=== PATIENT | female | born 1940 | race Caucasian/White ===

== ENCOUNTER 2024-10-04 09:43 | Emergency (ER) | payer MEDICARE, BC, SELFPAY ==
[2024-10-04 09:47] VITALS: BP 118/68; PULSE 69; RESP 20; TEMP 36.4; O2SAT 97
--- NOTE | 2024-10-04 10:09 | PD.EDADULT ---
ED General RME/HPI General Chief complaint: Nausea/Vomiting/Diarrhea Stated complaint: DIARRHEA TODAY WITH ABD CRAMPS Time Seen by Provider: 10/04/24 10:05 Arrival date/time: 10/04/24 09:43 Related Data Home Medications ?Medication ?Instructions ?Recorded ?Confirmed benazepril 5 mg tablet 5 mg PO QDAY 04/21/18 02/10/22 levothyroxine 100 mcg tablet 100 mcg PO DAILY 04/21/18 02/10/22 lovastatin 40 mg tablet 40 mg PO DAILY 04/21/18 02/10/22 glimepiride 1 mg tablet 1 mg PO QDAY 02/10/22 02/10/22 metformin 500 mg tablet,extended 500 mg PO QDAY 02/10/22 02/10/22 release 24 hr timolol maleate 0.5 % eye drops 1 drp ophthalmic (eye) BID 02/10/22 02/10/22 Previous Rx's ?Medication ?Instructions ?Recorded ciprofloxacin HCl 500 mg tablet 500 mg PO BID 10 days #20 tabs 10/04/24 metronidazole 500 mg tablet 500 mg PO Q8H 10 days #30 tabs 10/04/24 Allergies Allergy/AdvReac Type Severity Reaction Status Date / Time nitrofurantoin Allergy Mild Itching Verified 08/29/18 17:00 sulfamethoxazole Allergy Mild Itching Verified 08/29/18 17:00 trimethoprim Allergy Mild Itching Verified 08/29/18 17:00 Penicillins Allergy Unknown Itching Verified 08/29/18 17:00 FOAM TAPE Allergy Mild skin Uncoded 08/29/18 17:00 peels off PAPER TAPE Allergy Unknown skin Uncoded 08/29/18 17:00 peels off PLASTIC TAPE Allergy Unknown skin Uncoded 08/29/18 17:00 peels off Review of Systems Review of Systems Systems Reviewed: All systems reviewed, normal except as documented ED Exam Narrative Physical exam: Physical Exam GENERAL: NAD, AAOx3 HEENT: Moist mucosa. Eyes open, symmetrical, & clear CARDIO: Heart RRR, no obvious murmurs PULM: No noted coughing/dyspnea CTA B/L, no R/W/R GI: Abdomen soft, nondistended, mild LLQ pain on palpation. hyperactive bowel sounds SKIN/MSK/EXT: No wounds/rashes/edema/amputations, no pain on palpation. Pedal pulses present B/L NEURO: AAOx3, no focal neuro deficits, able to move all 4 extremities Course Course Course Narrative: see MDM Quality Measures none Orders Category Date Time Status Cogeneration Technician Q4H START 00 Care 10/04/24 10:13 Completed Continuous Pulse Oximetry NOW Care 10/04/24 10:13 Completed EKG (ED ONLY) *Do not use* NOW Care 10/04/24 10:14 Completed Insert IV STAT Care 10/04/24 10:14 Completed NPO STAT Care 10/04/24 10:[address] abdomen pelvis wo con Stat Exams 10/04/24 10:16 Completed EKG (ED Only) Stat Exams 10/04/24 10:14 Draft CBC Stat Lab 10/04/24 10:27 Completed CMP [Comprehensive Metabolic Panel] Stat Lab 10/04/24 10:27 Completed Lactic Acid [Lactate (Lactic Acid)] Stat Lab 10/04/24 10:27 Completed Lactic Acid [Lactate (Lactic Acid)] Stat Lab 10/04/24 12:57 Results Lipase Stat Lab 10/04/24 10:27 Completed Magnesium Stat Lab 10/04/24 10:27 Completed Troponin I Stat Lab 10/04/24 10:27 Completed Urinalysis Stat Lab 10/04/24 12:19 Completed Ciprofloxacin HCl [Ciprofloxacin] Med 10/04/24 12:24 Discontinued 500 mg PO X1 ONE Ondansetron Inj [Zofran Inj] Med 10/04/24 10:14 Discontinued 4 mg IVP Q1H PRN Pantoprazole Inj [Protonix Inj] Med 10/04/24 10:14 Discontinued 40 mg IVP X1 ONE Sodium Chloride 0.9% 1000 ml [Ns] 1,000 ml Med 10/04/24 10:14 Discontinued IV 100 mls/hr Sodium Chloride 0.9% 1000 ml [Ns] 1,000 ml Med 10/04/24 10:14 Discontinued IV 999 mls/hr Sodium Chloride 0.9% 1000 ml [Ns] 1,000 ml Med 10/04/24 12:25 Discontinued IV 999 mls/hr metroNIDAZOLE [Flagyl] Med 10/04/24 12:24 Discontinued 500 mg PO X1 ONE Vital Signs Vital signs: Vital Signs Temperature 97.6 F 10/04/24 09:47 Pulse Rate 69 10/04/24 09:47 Respiratory Rate 20 10/04/24 09:47 Blood Pressure 118/68 10/04/24 09:47 Pulse Oximetry (%) 97 10/04/24 09:47 Oxygen Delivery Method Room Air 10/04/24 09:47 Discharge Plan Plan Patient Disposition: HOME (Self Care) Prescriptions/Referrals Prescriptions/Med Rec: New ciprofloxacin HCl 500 mg tablet 500 mg PO BID 10 Days Qty: 20 0RF metronidazole 500 mg tablet 500 mg PO Q8H 10 Days Qty: 30 0RF No Action benazepril 5 mg Tablet 5 mg PO QDAY lovastatin 40 mg Tablet 40 mg PO DAILY levothyroxine 100 mcg Tablet 100 mcg PO DAILY glimepiride 1 mg Tablet 1 mg PO QDAY timolol maleate 0.5 % Drops 1 drp OPHTHALMIC (EYE) BID metformin 500 mg Tablet Extended Release 24 Hr 500 mg PO QDAY Referrals: Omkar Lim MD [Primary Care Provider] - In 1 week Problem List Clinical Impression: Diverticulitis Patient/Caregiver Discharge Instructions Additional Instructions: Follow up with primary care physician within 1 week of discharge You have Diverticulitis and have been prescribed antibiotics for 10 days please take these medications are prescribed and complete the whole course Remember to stay hydrated since you are having diarrhea episodes Should any symptoms recur or worsen patient is instructed to return to the ED. Print Language: Greenlandic Stand Alone Forms: [employer] Info., Patient Portal Info Letter MDM Narrative MDM hospital course: 84 y/o F with PMHx of Atrial fibrillation, Diabetes, hypertension, hypothyroidism, renal cell carcinoma s/p left nephrectomy, stage IV malignant brain tumor with lung mets was on keytruda last session on july due to no response to therapy, allergies to Penicillin, TMP-SMX, nitrofurantoin who was brought to the ED from home due to diarrhea. Patient states symptoms started this am where she reports having >10 episodes of non-bloody diarrhea with associated diaphoresis. She denies fever, shortness of breath, palpitations, chest pain, vomiting, swelling of extremities, PND, orthopnea 1021: Labs ordered, 1L IVFs ordered, imaging studies 1103: Lactic acid noted to be 5.2, patient already on IVFs, CBC is unremarkable, 1148: CT abdomen pelvis shows acute diverticulitis, additional IVFs ordered 1222: Family and patient wishes to go home and not stay in the hospital for IV Abx, will order first dose of Ciprofloxacin and flagyl in the ER and prescribe Abx therapy to her pharmacy Patient is counseled extensively on the complications of diverticulitis and given strict return precautions. Patient instructed if symptoms recur or worsen patient is instructed to return to the ED. Clinical Information Provided by patient Medical Records Reviewed [facility] Chronic Illness/Social Conditions which may negatively complicate care or outcome(s)-explain: Cancer Medication Administration(s) Medication Administration History Discontinued Medications Ciprofloxacin (Ciprofloxacin Hcl 250 Mg Tablet) 500 mg PO X1 ONE Stop: 10/04/24 12:25 Last Admin: 10/04/24 12:37 Dose: 500 mg Documented By: JUAN CARLOS Sodium Chloride (Ns) 1,000 mls @ 100 mls/hr IV .Q10H ONE Stop: 10/04/24 20:13 Last Admin: 10/04/24 11:21 Dose: Not Given Documented By: JUAN CARLOS Non-Admin Reason: Cancelled by Provider Sodium Chloride (Ns) 1,000 mls @ 999 mls/hr IV .Q1H1M ONE Stop: 10/04/24 11:14 Last Infusion: 10/04/24 12:17 Dose: Infused Documented By: Admin: 10/04/24 11:23 Dose: 999 mls/hr Documented By: JUAN CARLOS Sodium Chloride (Ns) 1,000 mls @ 999 mls/hr IV .Q1H1M ONE Stop: 10/04/24 13:25 Last Infusion: 10/04/24 14:32 Dose: Infused Documented By: Admin: 10/04/24 12:39 Dose: 999 mls/hr Documented By: JUAN CARLOS Metronidazole (Metronidazole 250 Mg Tablet) 500 mg PO X1 ONE Stop: 10/04/24 12:25 Last Admin: 10/04/24 12:36 Dose: 500 mg Documented By: JUAN CARLOS Ondansetron HCl (Ondansetron Inj 2 Mg/Ml Inj 2 Ml) 4 mg IVP Q1H PRN PRN Reason: PERSISTENT NAUSEA OR VOMITING Last Admin: 10/04/24 11:26 Dose: 4 mg Documented By: UJAN CARLOS Pantoprazole Sodium (Pantoprazole Inj 40 Mg Vial) 40 mg IVP X1 ONE Stop: 10/04/24 10:15 Last Admin: 10/04/24 11:31 Dose: 40 mg Documented By: JUAN CARLOS
--- NOTE | 2024-10-04 10:14 | EKG_ITS ---
[facility] Test Date: 2024-10-04 Pat Name: ISMAEL DEWITT Department: Room: - Gender: Female Audio Visual Manager: : 1940 Requested By: Jerardo Elizalde Order Number: [id number] Reading MD: Jerardo Elizalde Measurements Intervals [place] Rate: 74 P: 56 MA: 166 QRS: -9 QRSD: 92 T: -18 QT: 378 QTc: 421 Interpretive Statements SINUS RHYTHM WITH SINUS ARRHYTHMIA LOW QRS VOLTAGE IN PRECORDIAL LEADS [QRS DEFLECTION < 1.0 mV IN CHEST LEADS] NONSPECIFIC ST & T-WAVE ABNORMALITY Compared to ECG 02/10/2022 10:15:16 T-wave abnormality now present Atrial fibrillation no longer present Myocardial infarct finding no longer present /store/S0/[id number]/[id number].pdf
[2024-10-04 10:15] VITALS: BP 122/66; PULSE 74; PULSE 77; RESP 17; TEMP 36.5; O2SAT 97; O2SAT 99
--- NOTE | 2024-10-04 10:15 | PC.NURSE ---
DIARRHEA AND ABD CRAMPING TODAY
--- NOTE | 2024-10-04 10:16 | XR_ITS ---
Examination: CT abdomen and pelvis without contrast. Coronal 3-D reconstructions. Sagittal 2-D reconstructions. Date and time of exam:October 04, 2024 1041 hours Comparison September 15, 2016 INDICATIONS: History renal cell carcinoma post left nephrectomy, abdominal pain severe diarrhea today CTDI: vol (mGy): 10.2 DLP: (mGycm): 612 Technique: Axial images of the abdomen have been obtained, 3 mm slice thickness Intravenous contrast material has not been administered. Low dose protocols were performed. One or more of the following dose reduction techniques were used; automated exposure control, adjustment of the mA and/or KV according to patient size, use of iterative reconstruction technique. Findings: Pulmonary nodular metastatic disease, multiple bilateral pulmonary nodules which have progressed compared with CT chest September 06, 2019, the largest nodule in the lingular segment left upper lobe measuring 33 mm Liver is irregular in contour, no focal liver lesions Spleen is not enlarged Gallbladder is not visualized No extrahepatic biliary tract dilatation No pancreatic mass Right renal arterial calcifications No solid right renal mass No tumor mass in the left renal fossa No abdominal or pelvic lymphadenopathy No bowel obstruction No pericecal inflammatory change. Colonic diverticulosis with fluid adjacent to the diverticula in the sigmoid colon No peridiverticular abscess Bladder intact Severe osteopenia with advanced disc narrowing L2-L3, L4-L5 IMPRESSION: Progression of pulmonary nodular metastatic disease compared with September 06, 2019 Mild acute sigmoid diverticulitis
[2024-10-04 10:53] VITALS: BMI 28.8
[2024-10-04 10:53] LABS: Basophils # (Auto) 0.1 Thou/mm3 (0.0-0.2); Basophils % (Auto) 1 % (0-2.5); Eosinophils # (Auto) 0.0 Thou/mm3 (0.0-0.5); Eosinophils % (Auto) 0 % (0-10); Hematocrit 38.9 % (36.0-46.0); Hemoglobin 13.0 g/dL (12.0-16.0); Immature Granulocytes Auto 0.05 Thou/mm3 (0.00-0.00); Lymphocytes # (Auto) 2.4 Thou/mm3 (1.0-4.8); Lymphocytes % (Auto) 27 % (10-50); Mean Corpuscular HGB Conc 33.4 g/dl (31.0-37.0); Mean Corpuscular Hemoglobin 32.6 pg (25.0-35.0); Mean Corpuscular Volume 98 fL (80-100); Monocytes # (Auto) 0.6 Thou/mm3 (0.0-0.8); Monocytes % (Auto) 6 % (0-12); Neutrophils # (Auto) 5.7 Thou/mm3 (1.8-7.7); Neutrophils % (Auto) 65 % (37-80); Nucleated Red Blood Cell # 0.02 Thou/mm3 (0.00-0.00); Nucleated Red Blood Cell % 0 /100 WBC (0); Platelet Count 206 Thou/mm3 (140-440); RDW Standard Deviation 53.1 fL (36.4-46.3); Red Blood Count 3.99 Miln/mm3 (4.00-5.20); White Blood Count 8.8 Thou/mm3 (3.6-11.0)
[2024-10-04 11:00] VITALS: BP 106/73; PULSE 76; RESP 19; O2SAT 100
[2024-10-04 11:01] LABS: Lactate (Lactic Acid) 5.2 mMol/L (0.4-2.0)
[2024-10-04] MEDS: SODIUM CHLORIDE 0.9% 1000 ML 1,000 ML 999 ML IV ×2 (11:23→12:39)
[2024-10-04] MEDS: ONDANSETRON INJ 2 MG/ML INJ 2 ML 4 MG IVP (11:26)
[2024-10-04 12:00] VITALS: BP 118/56; PULSE 77; RESP 24; TEMP 36.5; O2SAT 97
[2024-10-04 12:18] LABS: Alanine Aminotransferase 35 U/L (10-49); Albumin, Serum 4.5 gm/dL (3.4-4.8); Albumin/Globulin Ratio 2.0 (1.2-2.2); Alkaline Phosphatase 51 U/L (46-116); Anion Gap 15 (7-16); Aspartate Amino Transferase 41 U/L (0-34); BUN/Creatinine Ratio 16 Ratio (12-20); Bilirubin,Total 1.0 mg/dL (0.3-1.2); Blood Urea Nitrogen 21 mg/dL (9-23); Calcium 9.9 mg/dL (8.3-10.6); Calcium (Corrected) 9.9 mg/dL (8.5-10.1); Carbon Dioxide 21.3 mMol/L (20.0-31.0); Chloride 105 mMol/L (98-107); Creatinine (Component) 1.3 mg/dL (0.6-1.3); Estimated Creatinine Clearance 35.8 mL/min (>60); Globulin 2.3 gm/dL (2.3-3.5); Glucose 218 mg/dL (74-106); Lipase 33 U/L (12-53); Magnesium 1.4 mg/dL (1.6-2.6); Osmolality,Calculated 291 (275-295); Potassium 4.2 mMol/L (3.4-5.1); Sodium 141 mMol/L (136-145); Total Protein 6.8 gm/dL (5.7-8.2); Troponin I 0.024 ng/mL (0.0-0.045); eGFR 41 See Note
[2024-10-04 12:31] LABS: Collection Type, Urine Clean Catch
[2024-10-04] MEDS: CIPROFLOXACIN HCL 250 MG TABLET 500 MG PO (12:37)
[2024-10-04 13:04] LABS: Lactate (Lactic Acid) 4.7 mMol/L (0.4-2.0)
[2024-10-04 13:23] LABS: Bacteria,Urine 1+; Bilirubin,Urine Negative (Negative); Blood,Urine Negative (Negative); Clarity,Urine Turbid (Clear/Hazy); Color,Urine Lt-Yellow (Lt Yel-Yel); Glucose, Urine Negative (Negative); Ketones,Urine Negative (Negative); Leukocyte Esterase,Urine Positive (Negative); Nitrite,Urine Positive (Negative); PH,Urine 6.5 (5.0-7.0); Protein,Urine Negative (Neg - Trace); RBC,Urine 5 /hpf (0-3); Specific Gravity,Urine 1.010 (1.001-1.035); Squamous Epithelial Cell,Urine 1 /hpf (0-5); Urobilinogen,Urine Negative mg/dL (0.0-1.0); WBC,Urine 41 /hpf (0-5)
[2024-10-04 13:35] LABS: Reflex Lactate? Y
[2024-10-04 14:00] VITALS: BP 155/83; PULSE 72; RESP 16; TEMP 36.6; O2SAT 97
[2024-10-04 14:32] VITALS: BP 155/83; PULSE 76; RESP 18; O2SAT 99
[2024-10-04 16:00] LABS: Reflex Lactate? Y
== END 2024-10-04 14:34 | disposition home or self-care (01) ==
PROVIDERS: Student in an Organized Health Care Education/Training Program; Emergency Provider Family Medicine; PCP Family Medicine
DX: K57.32 Diverticulitis of large intestine without perforation or abscess without bleeding (principal); I49.8 Other specified cardiac arrhythmias; I10 Essential (primary) hypertension; I48.91 Unspecified atrial fibrillation
CPT/HCPCS: 36415; 74176; 80053; 81001; 83605; 83690; 83735; 84484; 85025; 87205; 93005; 96361; 96372; 96374; 96375; 99284; J2405; J2470; J7030; A9270

== ENCOUNTER → 2024-10-26 | Outpatient (CLI) | payer MEDICARE, BC, SELFPAY | END | disposition home or self-care (01) | LOC: SWHD 09:34 | PROVIDERS: PCP Internal Medicine; Referring Provider Internal Medicine; Visit Provider Student in an Organized Health Care Education/Training Program | DX: S51.002A Unspecified open wound of left elbow, initial encounter (principal); W19.XXXA Unspecified fall, initial encounter; R91.8 Other nonspecific abnormal finding of lung field; I10 Essential (primary) hypertension; K57.92 Diverticulitis of intestine, part unspecified, without perforation or abscess without bleeding; I48.91 Unspecified atrial fibrillation; Z98.890 Other specified postprocedural states; H40.9 Unspecified glaucoma | CPT/HCPCS: 17250; 99213; A9270; G0463 ==

== ENCOUNTER → 2024-11-02 | Outpatient (CLI) | payer MEDICARE, BC, SELFPAY | END | disposition home or self-care (01) | LOC: SWHD 14:01 | PROVIDERS: PCP Family Medicine; Referring Provider Family Medicine; Visit Provider Student in an Organized Health Care Education/Training Program | DX: S51.002A Unspecified open wound of left elbow, initial encounter (principal); W19.XXXA Unspecified fall, initial encounter; R91.8 Other nonspecific abnormal finding of lung field; I10 Essential (primary) hypertension; K57.92 Diverticulitis of intestine, part unspecified, without perforation or abscess without bleeding; I48.91 Unspecified atrial fibrillation; Z98.890 Other specified postprocedural states; H40.9 Unspecified glaucoma | CPT/HCPCS: 17250; A9270 ==

== ENCOUNTER 2024-11-14 00:45 | Inpatient (IN) | payer MEDICARE, BC, SELFPAY ==
[2024-11-14] VITALS (46 sets, daily range): BP systolic 98–130; BP diastolic 43–79; PULSE 67–107; RESP 12–96; TEMP 36.2–36.7; O2SAT 71–98; BMI 27.6; BMI 26.8
--- NOTE | 2024-11-14 00:57 | PD.EDFALL ---
ED Fall Injury RME/HPI General Chief Complaint: Fall Stated Complaint: BACK PAIN Time Seen by Provider: 11/14/24 01:22 Arrival date/time: 11/14/24 00:45 RME / HPI RME / HPI Narrative: See MDM for HPI documentation. Related Data Home Medications ?Medication ?Instructions ?Recorded ?Confirmed benazepril 5 mg tablet 5 mg PO QDAY 04/21/18 11/14/24 levothyroxine 100 mcg tablet 100 mcg PO DAILY 04/21/18 11/14/24 lovastatin 40 mg tablet 40 mg PO DAILY 04/21/18 11/14/24 metformin 500 mg tablet,extended 500 mg PO QDAY 02/10/22 11/14/24 release 24 hr timolol maleate 0.5 % eye drops 1 drp ophthalmic (eye) BID 02/10/22 11/14/24 [id number]-jiwoegurhrexz-iacycfvo 1 tab PO PRN 11/14/24 11/14/24 50 mg-325 mg-40 mg tablet dapsone 100 mg tablet 100 mg PO QDAY 11/14/24 11/14/24 diclofenac sodium 1 % topical gel 4 g topical QID 11/14/24 11/14/24 loperamide 2 mg capsule 2 mg PO QID 11/14/24 11/14/24 meclizine 12.5 mg tablet 12.5 mg PO TID 11/14/24 11/14/24 metoprolol succinate 25 mg 25 mg PO Q12H 11/14/24 11/14/24 tablet,extended release 24 hr prednisone 10 mg tablet 10 mg PO QDAY 11/14/24 11/14/24 Previous Rx's ?Medication ?Instructions ?Recorded doxycycline monohydrate 100 mg 100 mg PO BID #10 caps 11/16/24 capsule dronabinol 2.5 mg capsule 2.5 mg PO QDAY #30 caps 11/16/24 nystatin 100,000 unit/gram topical 1 applic top BID 30 days #30 grams 11/16/24 cream Allergies Allergy/AdvReac Type Severity Reaction Status Date / Time adhesive tape Allergy Mild Redness of Unverified 11/16/24 09:23 Skin ceftriaxone Allergy Mild rash Verified 11/16/24 09:58 nitrofurantoin Allergy Mild Itching Verified 11/16/24 09:23 sulfamethoxazole Allergy Mild Itching Verified 11/16/24 09:23 trimethoprim Allergy Mild Itching Verified 08/29/18 17:00 Penicillins Allergy Unknown Itching Verified 11/16/24 09:23 Review of Systems Review of Systems Systems Reviewed: All systems reviewed, normal except as documented Past Medical History Past Medical History CARDIAC: Positive Cardiac Disorders, Hypercholesterolemia and Hypertension; Negative Congestive Heart Failure RESPIRATORY: Negative Chronic Obstructive Pulmonary Disease (COPD) GENITOURINARY: Negative Renal Disease ENDOCRINE: Positive Diabetes Mellitus Type 2 and Hypothyroidism; Negative Diabetes Mellitus Type 1 OTHER HISTORY: Positive Cancer Social History SMOKING STATUS: Never smoker ED Exam Narrative Physical exam: See MDM for physical exam documentation. Course Quality Measures none Orders Category Date Time Status Bedside COVID-19 Antigen Test NOW Care 11/14/24 01:18 Active Bedside Influenza A&B Antigen Test NOW Care 11/14/24 01:18 Completed COVID-19 Screening Questionnaire NOW Care 11/14/24 05:37 Active Decision to Admit X1 Care 11/14/24 05:37 Completed EKG (ED ONLY) *Do not use* NOW Care 11/14/24 01:19 Completed Saline [Insert IV] NOW Care 11/14/24 01:18 Completed Straight [In and Out Catheter] X1 Care 11/14/24 01:[address] cervical spine wo con Stat Exams 11/14/24 01:[address] chest abdomen pelvis wo Stat Exams 11/14/24 01:[address] head/brain wo con Stat Exams 11/14/24 01:20 Completed EKG (ED Only) Stat Exams 11/14/24 01:19 Draft XR chest 1V portable Stat Exams 11/14/24 01:19 Completed XR femur BI min 2V Stat Exams 11/14/24 01:19 Completed XR forearm LT 2V Stat Exams 11/14/24 01:20 Completed BNP [B-Type Natriuretic Peptide] Stat Lab 11/14/24 01:31 Completed Beta Hydroxybutyrate Stat Lab 11/14/24 01:31 Completed Bilirubin,Direct Stat Lab 11/14/24 01:31 Completed Blood Culture (Lab) Stat Lab 11/14/24 01:34 Results CBC Stat Lab 11/14/24 01:31 Completed CK [Creatine Kinase] Stat Lab 11/14/24 01:31 Completed CMP [Comprehensive Metabolic Panel] Stat Lab 11/14/24 01:31 Completed CRP [C-Reactive Protein] Stat Lab 11/14/24 01:31 Completed ESR [Sed Rate (ESR)] Stat Lab 11/14/24 01:31 Completed Free T4 (Free Thyroxine) Stat Lab 11/14/24 01:31 Completed Lactate (Lactic Acid) Stat Lab 11/14/24 01:31 Completed Lactic Acid, 3 HR Stat Lab 11/14/24 05:21 Completed Lipase Stat Lab 11/14/24 01:31 Completed Magnesium Stat Lab 11/14/24 01:31 Completed Procalcitonin Stat Lab 11/14/24 01:31 Completed TSH [Thyroid Stimulating Hormone] Stat Lab 11/14/24 01:31 Completed Troponin I Stat Lab 11/14/24 01:31 Completed UA, C/S IF [Urinalysis, C/S if Indicated] Stat Lab 11/14/24 03:17 Completed Urine Culture Stat Lab 11/14/24 03:17 Completed VBG [Venous Blood Gas] Stat Lab 11/14/24 05:21 Completed Magnesium Sulfate 4 GM Ivpb [Magnesium Sulfate Ivpb] Med 11/14/24 02:47 Discontinued 4 gm in 50 ml IV X1 Morphine Inj Med 11/14/24 01:19 Discontinued 2 mg IVP X1 ONE Ondansetron Inj [Zofran Inj] Med 11/14/24 01:19 Discontinued 4 mg IVP X1 ONE Sodium Chloride 0.9% 1000 ml [Ns] 1,000 ml Med 11/14/24 01:19 Discontinued IV 999 mls/hr Sodium Chloride 0.9% 1000 ml [Ns] 1,000 ml Med 11/14/24 04:54 Discontinued IV 999 mls/hr cefTRIAXone/D5w 1gm IV premix [Rocephin/D5w 1gm IV Med 11/14/24 02:46 Discontinued premix] 1 gm in 50 ml IV X1 Vital Signs Vital signs: Vital Signs Temperature 98.0 F 11/14/24 01:15 Pulse Rate 107 H 11/14/24 01:15 Respiratory Rate 18 11/14/24 01:15 Blood Pressure 113/71 11/14/24 01:15 Pulse Oximetry (%) 97 11/14/24 01:15 Oxygen Delivery Method Room Air 11/14/24 01:15 Fall MDM Narrative MDM Narrative:: This section includes all my notes and documentations, including HPI, PE, and ED course. Mark Colvin MD HPI: 84yo female BIBA from home here for a fall. Patient got up to use the restroom at 9pm (several hours ago) and tripped and fell. She was unable to get up. Her son came home at 12am and found the patient on the floor. No loss of consciousness. Patient has back pain. She reports several days of worsening fatigue and malaise. No other complaints reported. ROS: All negative except as documented in HPI. Physical Exam: General: Alert and oriented. Appearance of malaise noted. Eyes: Conjunctivae and lids clear. EOMI. PERRL. ENT: No nasal congestion. Pharynx normal. Tympanic membrane normal bilaterally. Neck: Supple. No carotid bruit. No JVD. Heart: RRR. Lungs: No respiratory distress. Good air movement. No rhonchi, wheezing, rales. Chest: Equal tenderness. Abdomen: Soft with diffuse global tenderness. Normal bowel sounds. No distension. No rebound or guarding. Back: No spinal tenderness. Legs: No clubbing, cyanosis, edema. Skin: Warm and dry. Neuro: Alert and oriented X 3. Cranial Nerves II-XII grossly intact. No peripheral motor deficits. Musculoskeletal: Tenderness to the bilateral hips and left forearm. All other major joints and bones are not tender with no limited ROM. I reviewed EMS notes. I reviewed all diagnostic test results. My interpretation of the EKG is aFib with nonspecific ST-T changes. My interpretation of the chest x-ray is NAD. My interpretation of the bilateral femur x-ray is NAD. My interpretation of the left forearm x-ray is NAD. My review of the CT head report is NAD. My review of the CT cervical spine report is NAD. My review of the CT chest abdomen pelvis report is NAD. Blood tests remarkable for Na 131, Creatinine 1.5, Glucose 304, Lactic Acid 3.7, Magnesium 1.1, CRP 1.2. UA remarkable for positive nitrites, positive leukocyte esterase, 4 RBCs, 53 WBCs, and 4+ bacteria. COVID/Influenza negative. At this point, diagnoses include: Sepsis, General weakness, TAMMIE (acute kidney injury), Hyperglycemia, Hypomagnesemia, UTI (urinary tract infection) Treatment here included Morphine, Zofran, Rocephin, IV fluid. I discussed the case with our hospitalist. About the presentation and exam and diagnostics and treatments here. And need of further care in the hospital. Will accept the patient. Mark Colvin MD Patient data External records reviewed:: [facility] previous records (Per chart review, patient was seen here on 10/04/24 for diverticulitis.) and EMS form Clinical information provided by:: patient Social determinants that could affect healthcare access:: none Patient has the following chronic illnesses:: DM, HTN, HLD How is presenting disease/condition affected by chronic disease/condition?: uneffected by Evaluation data The following diagnostics were reviewed and interpreted by me:: lab results, radiology exam(s) and EKG tracing(s) (My interpretation of the EKG is: Atrial fibrillation (98 bpm) with nonspecific ST-T changes. Mark Colvin MD) Lab and/or radiology exams considered but not ordered:: none Interpretation Summary: I reviewed all diagnostic test results. My interpretation of the EKG is aFib with nonspecific ST-T changes. My interpretation of the chest x-ray is NAD. My interpretation of the bilateral femur x-ray is NAD. My interpretation of the left forearm x-ray is NAD. My review of the CT head report is NAD. My review of the CT cervical spine report is NAD. My review of the CT chest abdomen pelvis report is NAD. Blood tests remarkable for Na 131, Creatinine 1.5, Glucose 304, Lactic Acid 3.7, Magnesium 1.1, CRP 1.2. UA remarkable for positive nitrites, positive leukocyte esterase, 4 RBCs, 53 WBCs, and 4+ bacteria. COVID/Influenza negative. Medications / Prescriptions Medications or Prescriptions considered but not ordered:: none Medication administrations:: Medication Administration History Acetaminophen (Acetaminophen 325 Mg Tablet) 650 mg PO Q6H PRN PRN Reason: Fever >100.4 Stop: 12/14/24 05:43 Acetaminophen (Acetaminophen 325 Mg Tablet) 650 mg PO Q6H PRN PRN Reason: PAIN SCALE 1-3 (mild Stop: 12/14/24 05:43 Last Admin: 11/15/24 21:17 Dose: 650 mg Documented By: [email or web address] Hydrocodone Bitart/Acetaminophen (Hydrocodone/Apap 5/325 Tablet) 1 tab PO Q4HR PRN PRN Reason: PAIN SCALE 4-6 (Moderate Stop: 11/19/24 05:43 Atorvastatin Calcium (Atorvastatin Calcium 10 Mg Tablet) 10 mg PO 2100 JENNIFER; Protocol Stop: 12/15/24 20:59 Last Admin: 11/15/24 20:49 Dose: 10 mg Documented By: DOM Dextrose (Dextrose 50%-Water Inj 50 Ml Syringe) 25 ml IV Q15MIN PRN PRN Reason: BG 50-70 responsive npo pt Stop: 12/14/24 05:43 Dextrose (Dextrose 50%-Water Inj 50 Ml Syringe) 50 ml IV Q15MIN PRN PRN Reason: BG <50 OR BG <70 & pt unresponsive Stop: 12/14/24 05:43 Doxycycline Hyclate (Doxycycline 100 Mg Tablet) 100 mg PO BID [facility] Stop: 11/23/24 08:59 Last Admin: 11/16/24 09:27 Dose: 100 mg Documented By: CLARY Glucagon (Glucagon Inj 1 Mg Vial) 1 mg IM Q15MIN PRN PRN Reason: BG <70, and no IV access Heparin Sodium (Porcine) (Heparin Sod Inj 5000 Unit/Ml Vial) 5,000 unit SC Q12HR [facility] Stop: 11/28/24 08:59 Last Admin: 11/16/24 09:26 Dose: 5,000 unit Documented By: CLARY Co-signed By: BIMAL Admin: 11/15/24 20:48 Dose: 5,000 unit Documented By: DOM Co-signed By: ILYA Admin: 11/15/24 08:32 Dose: 5,000 unit Documented By: MICHAEL Co-signed By: JESSICA Admin: 11/14/24 20:54 Dose: 5,000 unit Documented By: DOM Co-signed By: ILYA Admin: 11/14/24 08:49 Dose: 5,000 unit Documented By: MARV Co-signed By: JANETH Sodium Chloride (Ns) 1,000 mls @ 75 mls/hr IV .[id number] [facility] Stop: 12/14/24 10:21 Last Admin: 11/16/24 12:20 Dose: 75 mls/hr Documented By: Infusion: 11/16/24 10:08 Dose: Infused Documented By: Admin: 11/16/24 05:36 Dose: Not Given Documented By: ILYA Non-Admin Reason: Wrong Time Admin: 11/15/24 20:48 Dose: 75 mls/hr Documented By: Infusion: 11/15/24 15:11 Dose: Infused Documented By: Admin: 11/15/24 01:51 Dose: 75 mls/hr Documented By: Infusion: 11/15/24 00:02 Dose: Infused Documented By: Admin: 11/14/24 10:42 Dose: 75 mls/hr Documented By: MARV Insulin Human Lispro (Insulin Lispro (Admelog) 1 Unit/0.01 Ml Unit) 0 unit SC AC JENNIFER; Protocol Stop: 12/14/24 07:29 Last Admin: 11/16/24 17:03 Dose: 1 unit Documented By: CLARY Co-signed By: BIMAL Admin: 11/16/24 12:03 Dose: 2 unit Documented By: BIMAL Co-signed By: CLARY Admin: 11/16/24 09:25 Dose: 1 unit Documented By: CLARY Co-signed By: BIMAL Admin: 11/15/24 17:12 Dose: 2 unit Documented By: MICHAEL Co-signed By: JESSICA Admin: 11/15/24 11:39 Dose: 2 unit Documented By: MICHAEL Co-signed By: EMELINA Admin: 11/15/24 08:20 Dose: Not Given Documented By: MICHAEL Non-Admin Reason: Per Protocol Admin: 11/14/24 17:51 Dose: 4 unit Documented By: MICHAEL Co-signed By: [email or web address] Admin: 11/14/24 12:39 Dose: 3 unit Documented By: MARV Co-signed By: ANGEL Admin: 11/14/24 07:50 Dose: 1 unit Documented By: MARV Co-signed By: JANETH Lactulose (Lactulose Syrup 20 Gm/30 Ml Udc) 20 gm PO DAILY JENNIFER; Protocol Stop: 12/15/24 08:59 Last Admin: 11/16/24 09:26 Dose: 20 gm Documented By: Admin: 11/15/24 09:49 Dose: Not Given Documented By: MICHAEL Non-Admin Reason: Patient Refused Levothyroxine Sodium (Levothyroxine Sodium 100 Mcg Tablet) 100 mcg PO ACBR JENNIFER Stop: 12/15/24 08:59 Last Admin: 11/16/24 05:04 Dose: 100 mcg Documented By: Admin: 11/15/24 08:32 Dose: 100 mcg Documented By: MICHAEL Metoprolol Succinate (Metoprolol Succinate Xl 25 Mg Tabcr) 25 mg PO Q12H JENNIFER Stop: 12/15/24 09:14 Last Admin: 11/16/24 09:26 Dose: 25 mg Documented By: Admin: 11/15/24 20:49 Dose: 25 mg Documented By: Admin: 11/15/24 09:55 Dose: Not Given Documented By: MICHAEL Non-Admin Reason: Vital Signs Comments: notified ,ordered to hold Nystatin (Nystatin Cr 30 Gm Tube) 0 gm TOP BID JENNIFER Stop: 12/15/24 11:29 Last Admin: 11/16/24 09:00 Dose: 1 appln Documented By: Admin: 11/15/24 21:17 Dose: 1 appln Documented By: Admin: 11/15/24 11:51 Dose: 1 appln Documented By: MICHAEL Ondansetron HCl (Ondansetron Inj 2 Mg/Ml Inj 2 Ml) 4 mg IVP Q6H PRN; Protocol PRN Reason: NAUSEA OR VOMITING Stop: 12/14/24 05:43 Last Admin: 11/16/24 03:08 Dose: 4 mg Documented By: DOM Pantoprazole Sodium (Pantoprazole 40 Mg Tablet) 40 mg PO QDAY JENNIFER; Protocol Stop: 12/16/24 08:59 Last Admin: 11/16/24 09:27 Dose: 40 mg Documented By: CLARY Sennosides (Senna Tablet) 1 tab PO QDAY PRN; Protocol PRN Reason: constipation Stop: 12/14/24 05:43 Discontinued Medications Diphenhydramine HCl (Diphenhydramine Elix 25 Mg/10 Ml Udc) 25 mg PO NOW ONE Stop: 11/15/24 11:19 Last Admin: 11/15/24 11:50 Dose: 25 mg Documented By: MICHAEL Diphenhydramine HCl (Diphenhydramine Inj 50 Mg/Ml Vial) 25 mg IVP X1 ONE Stop: 11/16/24 01:11 Last Admin: 11/16/24 03:10 Dose: 25 mg Documented By: DOM Dronabinol (Dronabinol 2.5 Mg Capsule) 2.5 mg PO X1 ONE Stop: 11/15/24 11:18 Last Admin: 11/15/24 11:50 Dose: 2.5 mg Documented By: MICHAEL Sodium Chloride (Ns) 1,000 mls @ 999 mls/hr IV .Q1H1M ONE Stop: 11/14/24 02:19 Last Infusion: 11/14/24 04:50 Dose: Infused Documented By: JUAN CARLOS Admin: 11/14/24 03:21 Dose: 999 mls/hr Documented By: JUAN FRANCISCO Ceftriaxone Sodium/Dextrose (Rocephin/D5w 1gm Iv Premix) 1 gm in 50 mls @ 100 mls/hr IV X1 ONE Stop: 11/14/24 03:15 Last Infusion: 11/14/24 04:04 Dose: Infused Documented By: JUAN FRANCISCO Admin: 11/14/24 03:30 Dose: 100 mls/hr Documented By: JUAN FRANCISCO Magnesium Sulfate (Magnesium Sulfate Ivpb) 4 gm in 50 mls @ 12.5 mls/hr IV X1 ONE Stop: 11/14/24 06:46 Last Infusion: 11/14/24 08:53 Dose: Infused Documented By: Admin: 11/14/24 04:42 Dose: 12.5 mls/hr Documented By: JUAN CARLOS Sodium Chloride (Ns) 1,000 mls @ 999 mls/hr IV .Q1H1M ONE Stop: 11/14/24 05:54 Last Infusion: 11/14/24 06:30 Dose: Infused Documented By: JUAN CARLOS Admin: 11/14/24 05:22 Dose: 999 mls/hr Documented By: JUAN CARLOS Magnesium Sulfate (Magnesium Sulfate Ivpb) 4 gm in 50 mls @ 12.5 mls/hr IV X1 ONE Stop: 11/14/24 09:49 Last Admin: 11/14/24 08:28 Dose: Not Given Documented By: MARV Non-Admin Reason: Other, see note Ceftriaxone Sodium/Dextrose (Rocephin/D5w 1gm Iv Premix) 1 gm in 50 mls @ 100 mls/hr IV QDAY JENNIFER Stop: 11/22/24 08:59 Last Infusion: 11/15/24 20:02 Dose: Infused Documented By: Admin: 11/15/24 08:33 Dose: 100 mls/hr Documented By: MICHAEL Magnesium Sulfate (Magnesium Sulfate Ivpb) 4 gm in 50 mls @ 12.5 mls/hr IV X1 ONE Stop: 11/14/24 12:59 Last Infusion: 11/14/24 10:40 Dose: 0 mls/hr Documented By: Admin: 11/14/24 08:48 Dose: 12.5 mls/hr Documented By: MARV Magnesium Sulfate (Magnesium Sulfate Ivpb) 4 gm in 50 mls @ 12.5 mls/hr IV X1 ONE Stop: 11/15/24 14:01 Last Infusion: 11/15/24 20:02 Dose: Infused Documented By: Admin: 11/15/24 11:30 Dose: 12.5 mls/hr Documented By: MICHAEL Sodium Chloride (Ns) 500 mls @ 80 mls/hr IV .Q6H15M ONE Stop: 11/15/24 16:18 Last Admin: 11/15/24 11:40 Dose: Not Given Documented By: MICHAEL Non-Admin Reason: increase rate from bag infusing Insulin Human Lispro (Insulin Lispro (Admelog) 1 Unit/0.01 Ml Unit) 6 unit SC X1 ONE Stop: 11/14/24 21:31 Last Admin: 11/14/24 21:49 Dose: 6 unit Documented By: DOM Co-signed By: ILYA Insulin Human Lispro (Insulin Lispro (Admelog) 1 Unit/0.01 Ml Unit) 3 unit SC X1 ONE Stop: 11/15/24 20:32 Last Admin: 11/15/24 20:48 Dose: 3 unit Documented By: DOM Co-signed By: ILYA Lactulose (Lactulose Syrup 20 Gm/30 Ml Udc) 20 gm PO TID JENNIFER; Protocol Stop: 12/14/24 05:59 Last Admin: 11/14/24 07:53 Dose: 20 gm Documented By: MARV Lovastatin (Lovastatin 20 Mg Tablet (Non-Form)) 40 mg PO DAILY JENNIFER Stop: 12/15/24 08:59 Morphine Sulfate (Morphine Sulf Inj 10 Mg/Ml Vial) 2 mg IVP X1 ONE Stop: 11/14/24 01:20 Last Admin: 11/14/24 03:24 Dose: 2 mg Documented By: JUAN FRANCISCO Ondansetron HCl (Ondansetron Inj 2 Mg/Ml Inj 2 Ml) 4 mg IVP X1 ONE; Protocol Stop: 11/14/24 01:20 Last Admin: 11/14/24 03:27 Dose: 4 mg Documented By: JUAN FRANCISCO Pantoprazole Sodium (Pantoprazole Inj 40 Mg Vial) 40 mg IVP QDAY JENNIFER Stop: 12/14/24 08:59 Last Admin: 11/15/24 08:32 Dose: 40 mg Documented By: Admin: 11/14/24 08:48 Dose: 40 mg Documented By: MARV Potassium Chloride (Potassium Chloride 20 Meq Tabcr) 40 meq PO X1 ONE Stop: 11/15/24 10:01 Last Admin: 11/15/24 11:31 Dose: 40 meq Documented By: MICHAEL Potassium Phos/Sodium Phos (Naph,[facility] Mbdb 1 Packet (1.5 Gm)) 1 packet PO X1 ONE Stop: 11/15/24 10:01 Last Admin: 11/15/24 11:31 Dose: 1 packet Documented By: MICHAEL Potassium Phos/Sodium Phos (Naph,[facility] Mbdb 1 Packet (1.5 Gm)) 1 packet PO X1 ONE Stop: 11/16/24 07:37 Last Admin: 11/16/24 08:00 Dose: Not Given Documented By: CLARY Non-Admin Reason: Duplicate Medication on eMAR Potassium Phos/Sodium Phos (Naph,[facility] Mbdb 1 Packet (1.5 Gm)) 1 packet PO X1 ONE Stop: 11/16/24 08:46 Last Admin: 11/16/24 09:27 Dose: 1 packet Documented By: CLARY Treatment from me here included: Morphine, Zofran, Rocephin, IV fluid Consultations Consultation(s) initiated? (list below): Yes Consultation #1 (Physician, Specialty, Details): I discussed the case with our hospitalist. About the presentation and exam and diagnostics and treatments here. And need of further care in the hospital. Will accept the patient. Time: 04:40 Diagnosis Fall Differential Diagnosis: syncope, compression fracture, concussion with loss of consciousness, concussion without loss of consciousness and other (CVA, brain tumor, DE, dehydration, electrolyte abnormalities, sepsis) Most likely diagnosis given after review of the tests above:: At this point, diagnoses include: Sepsis, General weakness, TAMMIE (acute kidney injury), Hyperglycemia, Hypomagnesemia, UTI (urinary tract infection) Admission Indicated Admission indicated?: indicated Explain why admission is indicated or not indicated:: At this point, diagnoses include: Sepsis, General weakness, TAMMIE (acute kidney injury), Hyperglycemia, Hypomagnesemia, UTI (urinary tract infection) Admission Request Was there a request for admission?: Yes Admission Attestation Admission request attestation: Discussed case with Hospitalist service regarding admission. Discussed patients ED course, exam findings, labs, and radiology results. The Hospitalist [agrees] to accept the patient for admission. Disposition Plan Disposition Plan: Admit Discharge Plan Plan Patient Disposition: Admit Acute Care w/in Hospital Patient condition on transfer: Stable Problem List Clinical Impression: Sepsis, General weakness, TAMMIE (acute kidney injury), Hyperglycemia, Hypomagnesemia, UTI (urinary tract infection) Patient/Caregiver Discharge Instructions Other Activity Instructions:: Please take your home medications as prescribed. Please start taking your new medication: Doxycycline 100mg twice daily for five days, Dronabinol 2.5mg once daily to help with your appetite, and Nystatin cream for your rashes. Please see your PCP within 1 week, if you do not have a PCP please make an appointment with the [facility] at [phone].
--- NOTE | 2024-11-14 01:19 | XR_ITS ---
Examination: Bilateral femur 4 views Technique one AP lateral right and left femur total 4 views Date and time: November 14, 2024 0146 hours INDICATIONS: Patient fell last night with injury to both right and left femur FINDINGS: Prominent osteopenia No bilateral hip fractures or dislocations Shafts of the right and left femur intact IMPRESSION: No acute fractures
--- NOTE | 2024-11-14 01:19 | XR_ITS ---
Examination: AP chest single view Technique one AP portable semiupright chest single view Date and time: November 14, 2024 0141 hours INDICATIONS: Shortness of breath today. FINDINGS: Suspicious for early pneumonia left base. Normal heart size Right internal jugular Port-A-Cath tip satisfactory position Prominent osteopenia IMPRESSION: Suspicious for early left base pneumonia
--- NOTE | 2024-11-14 01:19 | EKG_ITS ---
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1940 Requested By: Mark Warner Order Number: [id number] Reading MD: Mark Warner Measurements Intervals [place] Rate: 98 P: VT: QRS: -9 QRSD: 84 T: -68 QT: 351 QTc: 449 Interpretive Statements ATRIAL FIBRILLATION LOW QRS VOLTAGE IN PRECORDIAL LEADS [QRS DEFLECTION < 1.0 mV IN CHEST LEADS] POSSIBLE ANTERIOR MYOCARDIAL INFARCTION , OF INDETERMINATE AGE [30 ms Q WAVE IN V3/V4, OR R < 0.2 mV IN V4] MODERATE T-WAVE ABNORMALITY, CONSIDER LATERAL ISCHEMIA [-0.1+ mV T-WAVE IN I/aVL/V5/V6] MODERATE T-WAVE ABNORMALITY, CONSIDER INFERIOR ISCHEMIA [-0.1+ mV T-WAVE IN II/aVF] Compared to ECG 10/04/2024 10:55:21 Myocardial infarct finding now present Possible ischemia now present Sinus rhythm no longer present Sinus arrhythmia no longer present T-wave abnormality still present /store/S0/[id number]
--- NOTE | 2024-11-14 01:20 | XR_ITS ---
Examination: CT cervical spine without contrast 2-D sagittal reconstructions 2-D coronal reconstructions 3-D reconstructions. Exam date and time:November 14, 2024, 0213 hours INDICATIONS: Patient fell today with injury to the neck, neck pain. CTDI:vol (mGy) 13.86. DLP: (mGycm) 325. Technique: Multiple 2 mm axial sections of the cervical spine have been obtained. The coronal and sagittal reconstructions have been obtained. 3-D reconstructions have been obtained. Low dose protocols were performed. One or more of the following dose reduction techniques were used; automated exposure control, adjustment of the mA and/or KV according to patient size, use of iterative reconstruction technique. Findings: Axial sections demonstrate intact base of the skull. C1 exhibit satisfactory relationship to the odontoid. No acute cervical vertebral body fracture seen. Alignment posterior spinous processes satisfactory. Impression: No acute cervical fracture.
--- NOTE | 2024-11-14 01:20 | XR_ITS ---
Examination: Forearm, left, 2 views. Technique: Forearm, AP, lateral 2 views Date and time of exam: November 14, 2024 0142 hours INDICATIONS: Patient fell last night with injury to the forearm, forearm pain Findings: No fracture or dislocation. No foreign body IMPRESSION: No fracture or dislocation
--- NOTE | 2024-11-14 01:20 | XR_ITS ---
Examination: CT brain head without contrast. 2-D sagittal coronal reconstructions Date and time of exam: November 14, 2024, 0211 hours INDICATIONS: Patient fell today with injury to the head, head pain. CTDI: vol (mGy):45.21 DLP: (mGycm):831 Technique: Multiple CT axial sections of the brain have been obtained, 5 mm slice thickness. Contrast has not been administered. 2-D sagittal, coronal reconstructions have been obtained Low dose protocols were performed. One or more of the following dose reduction techniques were used; automated exposure control, adjustment of the mA and/or KV according to patient size, use of iterative reconstruction technique. Findings: Right craniotomy defect with encephalomalacia in the right temporal lobe at the site of prior extensive hemorrhage on the CT brain scan February 10, 2022 No current hemorrhage or midline shift Mild ventricular enlargement No cranial vault fractures IMPRESSION: No interval acute hemorrhage or mass effect
--- NOTE | 2024-11-14 01:20 | XR_ITS ---
Examination: CT chest, without intravenous contrast. CT abdomen, without intravenous contrast. CT pelvis, without intravenous contrast. 2-D sagittal and coronal reconstructions. 3-D reconstructions. Date and time of exam:November 14, 2024, 0215 hours INDICATIONS: Patient fell today with injury to the chest and abdomen, chest pain abdomen pain CTDI vol (mgy) 15.61 DLP (MGycm)1157 Technique: Multiple CT images, 3.0 mm slice thickness, obtained chest, abdomen, pelvis, with the high-resolution 64 slice scanner.. Sagittal and coronal 2-D reconstructions are obtained. 3-D reconstructions Low dose protocols were performed. One or more of the following dose reduction techniques were used; automated exposure control, adjustment of the mA and/or KV according to patient size, use of iterative reconstruction technique. Findings: Thoracic aorta pulmonary arteries intact. No pneumopericardium No pneumothorax pulmonary contusion or hemothorax Multiple bilateral metastatic pulmonary nodules, the largest in the lower lung zone on the right 22 mm and on the left 3 cm The manubrium and the body of the sternum intact Severe osteopenia No acute thoracic or lumbar vertebral body compression fracture noted No acute displaced rib fractures No visualized liver splenic or renal laceration, left kidney absent Abdominal aorta intact, no free fluid in the abdomen Negative for pneumoperitoneum Urinary bladder is intact 14 mm osteolytic lesion in the right iliac bone Hips are intact IMPRESSION: Thoracic aorta pulmonary arteries intact No pneumothorax Numerous metastatic bilateral pulmonary nodules. No abdominal parenchymal laceration. Abdominal aorta intact. No free blood in the abdomen or pelvis 14 mm osteolytic lesion in the right iliac bone
[2024-11-14 01:54] LABS: Lactate (Lactic Acid) 3.7 mMol/L (0.4-2.0)
[2024-11-14 01:56] LABS: Basophils # (Auto) 0.0 Thou/mm3 (0.0-0.2); Basophils % (Auto) 0 % (0-2.5); Eosinophils # (Auto) 0.0 Thou/mm3 (0.0-0.5); Eosinophils % (Auto) 0 % (0-10); Hematocrit 38.3 % (36.0-46.0); Hemoglobin 12.9 g/dL (12.0-16.0); Immature Granulocytes Auto 0.03 Thou/mm3 (0.00-0.00); Lymphocytes # (Auto) 2.4 Thou/mm3 (1.0-4.8); Lymphocytes % (Auto) 41 % (10-50); Mean Corpuscular HGB Conc 33.7 g/dl (31.0-37.0); Mean Corpuscular Hemoglobin 31.1 pg (25.0-35.0); Mean Corpuscular Volume 92 fL (80-100); Monocytes # (Auto) 0.5 Thou/mm3 (0.0-0.8); Monocytes % (Auto) 8 % (0-12); Neutrophils # (Auto) 2.8 Thou/mm3 (1.8-7.7); Neutrophils % (Auto) 50 % (37-80); Nucleated Red Blood Cell # 0.03 Thou/mm3 (0.00-0.00); Nucleated Red Blood Cell % 1 /100 WBC (0); Platelet Count 154 Thou/mm3 (140-440); RDW Standard Deviation 46.9 fL (36.4-46.3); Red Blood Count 4.15 Miln/mm3 (4.00-5.20); White Blood Count 5.7 Thou/mm3 (3.6-11.0)
[2024-11-14 01:58] LABS: Beta Hydroxybutyrate 0.8 mmol/L (<0.6)
[2024-11-14 02:19] LABS: B-Type Natriuretic Peptide 116 pg/mL (0-100)
[2024-11-14 02:28] LABS: Sed Rate (ESR) 8 mm/hr (0-30)
[2024-11-14 02:29] LABS: Alanine Aminotransferase 24 U/L (10-49); Albumin, Serum 4.3 gm/dL (3.4-4.8); Albumin/Globulin Ratio 2.0 (1.2-2.2); Alkaline Phosphatase 66 U/L (46-116); Anion Gap 14 (7-16); Aspartate Amino Transferase 35 U/L (0-34); BUN/Creatinine Ratio 23 Ratio (12-20); Bilirubin,Direct 0.3 mg/dL (0.0-0.3); Bilirubin,Total 1.0 mg/dL (0.3-1.2); Blood Urea Nitrogen 34 mg/dL (9-23); C-Reactive Protein 1.2 mg/dL (0.0-0.9); Calcium 10.6 mg/dL (8.3-10.6); Calcium (Corrected) 10.6 mg/dL (8.5-10.1); Carbon Dioxide 20.6 mMol/L (20.0-31.0); Chloride 96 mMol/L (98-107); Creatine Kinase 105 U/L (34-171); Creatinine (Component) 1.5 mg/dL (0.6-1.3); Estimated Creatinine Clearance 30.4 mL/min (>60); Free T4 (Free Thyroxine) 1.36 ng/dL (0.89-1.76); Globulin 2.2 gm/dL (2.3-3.5); Glucose 304 mg/dL (74-106); Lipase 24 U/L (12-53); Magnesium 1.1 mg/dL (1.6-2.6); Osmolality,Calculated 281 (275-295); Potassium 4.4 mMol/L (3.4-5.1); Procalcitonin 0.15 ng/ml (0.0-0.49); Sodium 131 mMol/L (136-145); Thyroid Stimulating Hormone 10.25 uIU/mL (0.55-4.78); Total Protein 6.5 gm/dL (5.7-8.2); Troponin I 0.029 ng/mL (0.0-0.045); eGFR 35 See Note
--- NOTE | 2024-11-14 03:10 | PRELIM_ITS ---
CT scan of the cervical spine without intravenous contrast (axial sections with sagittal and coronal reformats) November 14, 2024 0213 hours Clinical History: Trauma. No prior study is available for comparison. Findings: The bones are osteopenic. There is no fracture or traumatic subluxation. Mild to moderate degenerative changes are noted in the form of multilevel marginal osteophytes, decreased disc spaces and facet arthropathy. The prevertebral soft tissues are unremarkable. Impression: No evidence of fracture or traumatic subluxation. Mild to moderate degenerative changes. Report Electronically Signed By: Ap Sheppard 11/14/2024 3:10:12 AM [EST]
[2024-11-14] MEDS: SODIUM CHLORIDE 0.9% 1000 ML 1,000 ML 999 ML IV ×2 (03:21→05:22)
[2024-11-14] MEDS: MORPHINE SULF INJ 10 MG/ML VIAL 2 MG IVP (03:24)
[2024-11-14 03:25] LABS: Collection Type, Urine Clean Catch
[2024-11-14] MEDS: ONDANSETRON INJ 2 MG/ML INJ 2 ML 4 MG IVP (03:27)
[2024-11-14] MEDS: cefTRIAXone/D5w 1gm IV premix 1 GM/50 ML BAG IV (03:30)
--- NOTE | 2024-11-14 03:30 | PRELIM_ITS ---
CT scan of the head without intravenous contrast (axial sections with sagittal and coronal reformats); November 14, 2024 at 0211 hours Clinical History: Fall. No prior study is available for comparison. Findings: Right temporal craniotomy is noted with underlying encephalomalacia/edema in the right occipitotemporal lobe. There is no evidence of intracranial hemorrhage, mass effect or midline shift. There are mild periventricular white matter hypodensities, likely representing chronic small vessel ischemia. There is moderate volume loss. The mastoid air cells and the visualized paranasal sinuses are clear. Impression: No evidence of intracranial hemorrhage, midline shift or calvarial fracture. Periventricular chronic small vessel ischemia and volume loss. Right temporal craniotomy with underlying encephalomalacia/edema in the right occipitotemporal lobe. Recommend comparison with prior studies/ followup with MRI. Report Electronically Signed By: Ap Sheppard 11/14/2024 3:30:27 AM [EST]
[2024-11-14 03:50] LABS: Bacteria,Urine 4+; Bilirubin,Urine Negative (Negative); Blood,Urine Negative (Negative); Clarity,Urine Turbid (Clear/Hazy); Color,Urine Yellow (Lt Yel-Yel); Glucose, Urine 3+ (Negative); Ketones,Urine 1+ (Negative); Leukocyte Esterase,Urine Positive (Negative); Nitrite,Urine Positive (Negative); PH,Urine 6.0 (5.0-7.0); Protein,Urine 1+ (Neg - Trace); RBC,Urine 4 /hpf (0-3); Specific Gravity,Urine 1.022 (1.001-1.035); Squamous Epithelial Cell,Urine 2 /hpf (0-5); Urobilinogen,Urine Negative mg/dL (0.0-1.0); WBC,Urine 53 /hpf (0-5)
[2024-11-14 04:09] LABS: Culture Indicated,Urine Yes
--- NOTE | 2024-11-14 04:31 | PRELIM_ITS ---
CT scan of the chest, abdomen and pelvis without intravenous contrast (axial sections with sagittal and coronal reformats) November 14, 2024 0215 hours Clinical History: Fall. Comparison: No prior study is available for comparison. Findings: Tip of PICC catheter is seen in right atrium. There are multiple nodules in the bilateral lungs, the largest measuring 3 x 2 cm in the left lower lobe. There is no pleural effusion or pneumothorax. The thoracic aorta demonstrates atheromatous calcification without evidence of aneurysm. There is no mediastinal collection. There is no pericardial effusion. The gallbladder is surgically absent. Right renal artery calcifications are seen. The left kidney is absent. The liver, spleen, pancreas, adrenals are unremarkable on this noncontrast study. A moderate amount of fecal material is present in the colon. The urinary bladder is unremarkable. The uterus is surgically absent. There is no free fluid or free air. The abdominal aorta demonstrates atheromatous calcification without evidence of aneurysm. No fracture is identified. Degenerative changes are identified in the spine. A small hiatal hernia is present. Impression: 1. No fracture is identified. 2. Multiple nodules in the bilateral lungs, likely metastatic. 3. Moderate constipation. 4. Other findings as described above. Report Electronically Signed By: Eugene Montes 11/14/2024 4:31:08 AM [EST]
[2024-11-14] MEDS: Magnesium Sulfate 4 GM Ivpb 4 GM/50 ML BAG IV ×2 (04:42→08:48)
[2024-11-14 04:50] LABS: Reflex Lactate? Y
[2024-11-14 05:33] LABS: Base Excess, Venous -2 (-3-3); O2 Saturation, Venous 90 % (96-97); PCO2, Venous 29 mmHg (36-56); PO2, Venous 62 mmHg (15-58); pH, Venous 7.47 (7.33-7.66)
[2024-11-14 05:34] LABS: Lactic Acid, 3 HR 1.4 mMol/L (0.4-2.0)
--- NOTE | 2024-11-14 05:38 | ESHP_ITS ---
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 She was ambulating to the bathroom at 9 PM when she tripped and fell, unable to get up. She denies loss of consciousness, presyncope, or limb weakness prior to the fall. Her son found her on the ground at midnight. She reports persistent back pain, with hip and forearm tenderness. Collateral history from family reveals progressive frailty, weakness, and recurrent falls since mid-September 2024, when she was started on everolimus and lenvatinib for metastatic RCC. She fell multiple times after initiation of these medications, one causing a forearm skin tear requiring wound care. Due to concern for medication-related decline, her oncologist advised discontinuation on November 10, 2024 for a two-week trial off therapy. Despite stopping the medications, she has remained weak and continues to fall. She also endorses intermittent dysuria and poor oral intake. She denies chest pain, palpitations, or shortness of breath. In the ED, she was found to have Na 131, creatinine 1.5 (baseline ~1.0), glucose 304, Mg 1.1, lactic acid 3.7, and UA consistent with UTI. Imaging showed no acute fractures, but multiple pulmonary nodules consistent with metastases, moderate constipation, and evidence of prior right temporal craniotomy. She was treated with morphine, Zofran, IV fluids, ceftriaxone, and magnesium repletion. Review of Systems (ROS): * General: Fatigue, weakness, decreased appetite, weight loss. * Neuro: Recurrent falls, no LOC, no focal deficits. * Cardiac: Denies chest pain, palpitations, syncope. * Respiratory: Denies SOB or cough. * GI: Constipation, abdominal tenderness. Denies diarrhea, N/V. * : Dysuria, dark urine. * MSK: Back and hip pain post-fall. * Skin: Healing forearm wound. All other systems reviewed and negative. Past Medical History: * Atrial fibrillation * Type 2 diabetes mellitus * Hypertension * Hypothyroidism * Renal cell carcinoma (s/p nephrectomy 2006, metastatic to brain/lungs) * Recurrent falls Past Surgical History: * Left nephrecomy (2006) * Right temporal craniotomy for tumor resection Medications: * Recently stopped everolimus + lenvatinib (mid-September - November 10) * Others pending medication reconciliation Allergies: * Penicillin, TMP-SMX, Nitrofurantoin Family History: Non-contributory Social History: * Lives at home with family support * Denies tobacco, alcohol, or drugs * Ambulates with walker; increasing dependence, multiple falls Exam Vital Signs Temp Pulse Resp BP Pulse Ox O2 Del Method 98.0 F 107 H 18 113/71 97 Room Air 11/14/24 01:15 11/14/24 01:15 11/14/24 01:15 11/14/24 01:15 11/14/24 01:15 11/14/24 01:15 Narrative Exam General: Frail, alert, oriented, fatigued HEENT: MMM dry, PERRL, EOMI Neck: Supple, no JVD Cardiac: Irregularly irregular, no murmurs Lungs: Clear bilaterally, no rales/wheezes Abdomen: Soft, diffusely tender, no rebound/guarding Extremities: Tenderness hips/forearm, no edema Skin: Warm, dry, healing forearm tear Neuro: Alert ?3, CN II?XII intact, no focal deficits MSK: Tenderness hips/forearm, ROM preserved Results: Labs 11/14/24 01:31 11/14/24 01:31 Labs: Short CBC 11/14/24 Range/Units 01:31 WBC 5.7 (3.6-11.0) Thou/mm3 Hgb 12.9 (12.0-16.0) g/dL Hct 38.3 (36.0-46.0) % Plt Count 154 D (140-440) Thou/mm3 BMP 11/14/24 01:31 Sodium 131 L Potassium 4.4 Chloride 96 L Carbon Dioxide 20.6 BUN 34 H Creatinine 1.5 H Glucose 304 H Calcium 10.6 Cardiac Enzymes 11/14/24 Range/Units 01:31 Total Creatine Kinase 105 (34-171) U/L Troponin I 0.029 (0.0-0.045) ng/mL Liver Function 11/14/24 Range/Units 01:31 Total Bilirubin 1.0 (0.3-1.2) mg/dL Direct Bilirubin 0.3 (0.0-0.3) mg/dL AST 35 H (0-34) U/L ALT 24 (10-49) U/L Alkaline Phosphatase 66 (46-116) U/L Albumin 4.3 (3.4-4.8) gm/dL Urine 11/14/24 Range/Units 03:17 Urine Color Yellow (Lt Yel-Yel) Urine Clarity Turbid A (Clear/Hazy) Urine pH 6.0 (5.0-7.0) Ur Specific Kennedy 1.022 (1.001-1.035) Urine Protein 1+ A (Neg - Trace) Urine Glucose (UA) 3+ A (Negative) ABG Interpretation ABG results: 11/14/24 05:21 VBG pH 7.47 VBG pCO2 29 L VBG pO2 62 H VBG Base Excess -2 Quality Measures Quality Measures VTE prophylaxis Advance care planning discussed with:: patient and child Medications Home Medications and Allergies Home Medications ?Medication ?Instructions ?Recorded ?Confirmed ?Type benazepril 5 mg tablet 5 mg PO QDAY 04/21/18 History levothyroxine 100 mcg tablet 100 mcg PO DAILY 04/21/18 02/10/22 History lovastatin 40 mg tablet 40 mg PO DAILY 04/21/1801/28 History glimepiride 1 mg tablet 1 mg PO QDAY 02/10/22 History metformin 500 mg tablet,extended 500 mg PO QDAY 02/10/22 History release 24 hr timolol maleate 0.5 % eye drops 1 drp ophthalmic (eye) BID 02/10/22 02/10/22 History Allergies Allergy/AdvReac Type Severity Reaction Status Date / Time nitrofurantoin Allergy Mild Itching Verified 08/29/18 17:00 sulfamethoxazole Allergy Mild Itching Verified 08/29/18 17:00 trimethoprim Allergy Mild Itching Verified 08/29/18 17:00 Penicillins Allergy Unknown Itching Verified 08/29/18 17:00 FOAM TAPE Allergy Mild skin Uncoded 08/29/18 17:00 peels off PAPER TAPE Allergy Unknown skin Uncoded 08/29/18 17:00 peels off PLASTIC TAPE Allergy Unknown skin Uncoded 08/29/18 17:00 peels off Visit Medications Magnesium Sulfate (Magnesium Sulfate Ivpb) 4 gm in 50 mls @ 12.5 mls/hr IV X1 ONE Stop: 11/14/24 06:46 Last Admin: 11/14/24 04:42 Dose: 12.5 mls/hr Sodium Chloride (Ns) 1,000 mls @ 999 mls/hr IV .Q1H1M ONE Stop: 11/14/24 05:54 Last Admin: 11/14/24 05:22 Dose: 999 mls/hr Discontinued Medications Sodium Chloride (Ns) 1,000 mls @ 999 mls/hr IV .Q1H1M ONE Stop: 11/14/24 02:19 Last Infusion: 11/14/24 04:50 Dose: Infused Ceftriaxone Sodium/Dextrose (Rocephin/D5w 1gm Iv Premix) 1 gm in 50 mls @ 100 mls/hr IV X1 ONE Stop: 11/14/24 03:15 Last Infusion: 11/14/24 04:04 Dose: Infused Morphine Sulfate (Morphine Sulf Inj 10 Mg/Ml Vial) 2 mg IVP X1 ONE Stop: 11/14/24 01:20 Last Admin: 11/14/24 03:24 Dose: 2 mg Ondansetron HCl (Ondansetron Inj 2 Mg/Ml Inj 2 Ml) 4 mg IVP X1 ONE; Protocol Stop: 11/14/24 01:20 Last Admin: 11/14/24 03:27 Dose: 4 mg Assessment & Plan Plan 84F with PMH of atrial fibrillation, DM2, HTN, hypothyroidism, and metastatic RCC s/p nephrectomy (with brain/lung mets) presenting after fall, with progressive weakness, recurrent falls since starting everolimus + lenvatinib in September (stopped 11/10), found to have UTI with lactic acidosis, TAMMIE, hypomagnesemia, and hyperglycemia. # TAMMIE Creatinine 1.5 (baseline ~1.0). Likely prerenal from dehydration/poor oral intake. Plan: * Continue IV fluids, monitor response * Strict I/Os, daily BMP * Avoid nephrotoxins # SIRS due to UTI Patient with UTI (positive nitrites, LE, bacteria, pyuria) and lactic acidosis (3.7). Meets 1 SIRS criterion (tachycardia) with evidence of renal dysfunction (SOFA 1 for Cr 1.5 from baseline 1.0). No fever, normal WBC, normotensive, and mentating appropriately. Does not meet Sepsis-3 definition of sepsis but remains high risk for progression given frailty, malignancy, and poor oral intake. Plan: * Continue IV ceftriaxone; adjust per cultures * Trend lactate until normalized * Blood and urine cultures pending * Monitor for fever, hemodynamic changes # Electrolyte Abnormalities #Hypomagnesemia #Hyponatremia Mg 1.1 --> repleted in ED Na 131, mild, likely hypovolemic Plan: * Recheck Mg after replacement * Continue IV fluids, monitor sodium correction * Daily CMP # Recurrent Falls / Weakness # Dehydratin Multiple falls since temporally associated with everolimus/lenvatinib. Multifactorial with frailty, poor intake, dehydration, infection, and cancer- related decline. Plan: * Admit for monitoring and fall risk reduction * PT evaluation * Fall precautions * Pain control with acetaminophen; avoid oversedation with opioids * Monitor orthostatic vitals # Hyperglycemia, DM2 Glucose 304, not on insulin in ED. Plan: * Start SSI insulin * Hold oral DM meds until med rec complete * Monitor POC glucose # Metastatic RCC, off therapy Everolimus + lenvatinib mid-September --> stopped 11/10 due to falls. Pulmonary and brain mets. Oncology follow-up 12/06. Plan: * Supportive care inpatient * Has follow up with her Oncologist in [place] in 2 weeks. # Atrial fibrillation Chronic, irregularly irregular. Anticoagulation status unclear (prior bleeding event). Plan: * Clarify home meds * Resume rate control agents if confirmed * Reassess anticoagulation need vs bleeding risk in light of recurrent falls # Subclinical Hypothyroidism TSH 10.25, Free T4 normal. Plan: * Continue levothyroxine once med rec confirms dose # Constipation CT abdomen with moderate constipation. Plan: * Start lactulose 20 mg 3 times daily * Senna as needed Health Maintenance: Disposition: Admit to Tele Feeding: Diabetic/cardiac diet Thromboprophylaxis: Heparin SQ if not contraindicated GI prophylaxis: Protonix Code Status: Full code ----- Plan discussed with attending physician Dr. Bela Collins MD PGY-1 Internal Medicine Attending Provider Attestation/Addendum After examination of the patient and review of the clinical data I feel that this patient needs admission to the hospital for further treatment/evaluation. I Titi Cramer MD, attest that I was physically present for fuller portions of evaluation, and examined patient, labs and imagings and plan of care were discussed with IM residents team, and I agree with the findings and plans documented above.
[2024-11-14] MEDS: INSULIN LISPRO (AdmeLOG) 1 UNIT/0.01 ML UNIT SC ×3 (07:50→17:51)
[2024-11-14] MEDS: LACTULOSE SYRUP 20 GM/30 ML UDC PO (07:53)
--- NOTE | 2024-11-14 08:09 | ESPR_ITS ---
<Statement entered by Jerardo Elizalde MD - 11/14/24 15:16> Patient was examined and case was reviewed with team including attending physician. Note reviewed, I agree with most of its contents and agree with the patient's care as documented by Dr. Paul Patient seen today at the bedside found awake, alert, orientedx3. No overnight events reported. Vitals and labs reviewed. Currently on IV antibiotic treatment for UTI. Patient is complaining of generalized weakness. Will require physical therapy evaluation at this time. Patient also with TAMMIE we will continue at this time with low-rate maintenance fluids. Case discussed with my attending Dr. Waldemar Elizalde MD PGY-2 Disclaimer: Despite multiple revisions, due to the dictation software being used, the document bellow may not be free of grammatical errors including phonetic/typographic errors. However, this does not deter from our commitment to providing health care in the patient's best interest in mind. Documentation for date of: 11/14/24 Subjective Subjective Interval history: 11/14/24: RALPH. RUIZS. Patient was examined and evaluated at bedside while she was eating lunch. Patient denies any chest pain, shortness of breath, nausea or vomiting but reports dysuria. Exam Vital Signs Temp Pulse Resp BP Pulse Ox O2 Del Method O2 Flow Rate 97.8 F 67 14 113/52 L 92 L Nasal Cannula 2 11/14/24 06:09 11/14/24 06:25 11/14/24 06:09 11/14/24 06:09 11/14/24 06:09 11/14/24 06:09 11/14/24 06:25 Narrative Exam General: Alert, oriented, fatigued, in no acute distress HEENT: MMM dry, PERRL, EOMI Neck: Supple, no JVD Cardiac: Irregularly irregular, no murmurs Lungs: Clear bilaterally, no rales/wheezes Abdomen: Soft, diffusely tender, no rebound/guarding Extremities: Tenderness hips/forearm, no edema Skin: Warm, dry, healing forearm tear Neuro: Alert ?3, CN II?XII intact, no focal deficits MSK: Tenderness hips/forearm, ROM preserved Objective Labs 11/15/24 08:13 11/15/24 08:13 Labs: Laboratory Results - last 24 hr 11/14/24 11/14/24 11/14/24 01:31 03:17 05:21 WBC 5.7 RBC 4.15 Hgb 12.9 Hct 38.3 MCV 92 MCH 31.1 MCHC 33.7 RDW Std Deviation 46.9 H Plt Count 154 D Neut % (Auto) 50 Lymph % (Auto) 41 [place] % (Auto) 8 Eos % (Auto) 0 Baso % (Auto) 0 Neut # (Auto) 2.8 Lymph # (Auto) 2.4 [place] # (Auto) 0.5 Eos # (Auto) 0.0 Baso # (Auto) 0.0 Immature Gran # (Auto) 0.03 H Absolute Nucleated RBC 0.03 H Immature Gran % 1 H Nucleated RBC % 1 H ESR 8 VBG pH 7.47 VBG pCO2 29 L VBG pO2 62 H VBG O2 Sat ([place]) 90 L VBG Base Excess -2 Sodium 131 L Potassium 4.4 Chloride 96 L Carbon Dioxide 20.6 Anion Gap 14 BUN 34 H Creatinine 1.5 H Estim Creat Clear Calc 30.4 L eGFR 35 L BUN/Creatinine Ratio 23 H Glucose 304 H Calculated Osmolality 281 Lactic Acid 3.7 H 1.4 Calcium 10.6 Corrected Calcium 10.6 H Magnesium 1.1 L Total Bilirubin 1.0 Direct Bilirubin 0.3 AST 35 H ALT 24 Alkaline Phosphatase 66 Total Creatine Kinase 105 Troponin I 0.029 C-Reactive Prot, Quant 1.2 H B-Natriuretic Peptide 116 H Total Protein 6.5 Albumin 4.3 Globulin 2.2 L Albumin/Globulin Ratio 2.0 Lipase 24 Beta-Hydroxybutyrate/Acetoacetate 0.8 H Procalcitonin 0.15 TSH 10.25 H Free T4 1.36 Ur Collection Type Clean Catch Urine Color Yellow Urine Clarity Turbid A Urine pH 6.0 Ur Specific [place] 1.022 Urine Protein 1+ A Urine Glucose (UA) 3+ A Urine Ketones 1+ A Urine Blood Negative Urine Nitrite Positive Urine Bilirubin Negative Urine Urobilinogen (Auto) Negative Ur Leukocyte Esterase Positive Urine RBC 4 H Urine WBC 53 H Ur Squamous Epith Cells 2 Urine Bacteria 4+ A Ur Culture Indicated? Yes ABG Interpretation ABG results: 11/14/24 05:21 VBG pH 7.47 VBG pCO2 29 L VBG pO2 62 H VBG Base Excess -2 Quality Measures Quality Measures VTE prophylaxis Advance care planning discussed with:: patient Assessment & Plan Assessment Current Active Medications: Generic Name Dose Route Start Last Admin Trade Name Inés PRN Reason Stop Dose Admin Acetaminophen 650 mg 11/14/24 05:44 Acetaminophen 325 Mg Tablet PO 12/14/24 05:43 Q6H PRN Fever >100.4 Acetaminophen 650 mg 11/14/24 05:44 Acetaminophen 325 Mg Tablet PO 12/14/24 05:43 Q6H PRN PAIN SCALE 1-3 (mild Hydrocodone Bitart/Acetaminophen 1 tab 11/14/24 05:44 Hydrocodone/Apap 5/325 Tablet PO 11/19/24 05:43 Q4HR PRN PAIN SCALE 4-6 (Moderate Dextrose 25 ml 11/14/24 05:44 Dextrose 50%-Water Inj 50 Ml Syringe IV 12/14/24 05:43 Q15MIN PRN BG 50-70 responsive npo pt Dextrose 50 ml 11/14/24 05:44 Dextrose 50%-Water Inj 50 Ml Syringe IV 12/14/24 05:43 Q15MIN PRN BG <50 OR BG <70 & pt unresponsive Glucagon 1 mg 11/14/24 05:44 Glucagon Inj 1 Mg Vial IM Q15MIN PRN BG <70, and no IV access Heparin Sodium (Porcine) 5,000 unit 11/14/24 09:00 Heparin Sod Inj 5000 Unit/Ml Vial SC 11/28/24 08:59 Q12HR JENNIFER Ceftriaxone Sodium/Dextrose 1 gm in 50 mls @ 100 mls/hr 11/15/24 09:00 Rocephin/D5w 1gm Iv Premix IV 11/22/24 08:59 QDAY JENNIFER Magnesium Sulfate 4 gm in 50 mls @ 12.5 mls/hr 11/14/24 09:00 Magnesium Sulfate Ivpb IV 11/14/24 12:59 X1 ONE Insulin Human Lispro 0 unit 11/14/24 07:30 11/14/24 07:50 Insulin Lispro (Admelog) 1 Unit/0.01 Ml Unit SC 12/14/24 07:29 1 unit AC [facility] Administration Protocol Lactulose 20 gm 11/14/24 06:00 11/14/24 07:53 Lactulose Syrup 20 Gm/30 Ml Udc PO 12/14/24 05:59 20 gm TID JENNIFER Administration Protocol Ondansetron HCl 4 mg 11/14/24 05:44 Ondansetron Inj 2 Mg/Ml Inj 2 Ml IVP 12/14/24 05:43 Q6H PRN NAUSEA OR VOMITING Protocol Pantoprazole Sodium 40 mg 11/14/24 09:00 Pantoprazole Inj 40 Mg Vial IVP 12/14/24 08:59 QDAY JENNIFER Sennosides 1 tab 11/14/24 05:44 Senna Tablet PO 12/14/24 05:43 QDAY PRN constipation Protocol Plan 84F with PMH of atrial fibrillation, DM2, HTN, hypothyroidism, and metastatic RCC s/p nephrectomy (with brain/lung mets) presenting after ground level mechanical fall, with progressive weakness, recurrent falls since starting everolimus + lenvatinib in September (stopped 11/10 by oncologist), and dysuria, found to have UTI with lactic acidosis, TAMMIE, hypomagnesemia, and hyperglycemia. # TAMMIE Creatinine 1.5 (baseline ~1.0). Likely prerenal secondary to dehydration/poor PO intake Plan: - Continue maintenance IVF NS 75 - Strict I/Os - Daily CMP - Avoid nephrotoxins # SIRS due to UTI #Lactic acidosis (resolved) Patient with UTI (positive nitrites, leukocyte esterase, bacteria, pyuria) and lactic acidosis (3.7). Meets 1 SIRS criterion (tachycardia) with evidence of renal dysfunction (SOFA 1 for Cr 1.5 from baseline 1.0). No fever, normal WBC, normotensive, and mentating appropriately. Does not meet Sepsis-3 definition of sepsis but remains high risk for progression given frailty, malignancy, and poor oral intake. Lactate now improved to 1.4 Plan: - Continue IV ceftriaxone (start 11/14); adjust per cultures - Pending blood and urine cultures - Monitor for fever, hemodynamic changes # Electrolyte Abnormalities #Hypomagnesemia (Resolved) #Hyponatremia Mg 1.1 --> repleted in ED Na 131, mild, likely hypovolemic Repeat M.8. Plan: - Continue IV fluids, monitor sodium correction - Daily CMP # Recurrent Falls/Weakness # Dehydratin Multiple falls since mid-September temporally associated with everolimus/lenvatinib. Multifactorial with frailty, poor intake, dehydration, infection, and cancer- related decline. Plan: - PT evaluation - Fall precautions - Pain control with acetaminophen; avoid oversedation with opioids - Monitor orthostatic vitals # Hyperglycemia, DM2 Glucose 287, not on insulin in ED. Plan: - SSI insulin - Hold oral DM meds until med rec complete - Monitor POC glucose - Hypoglycemia protocol in place # Metastatic RCC, off therapy Everolimus + lenvatinib mid-September --> stopped 11/10 due to falls. Pulmonary and brain mets. Oncology follow-up 12/06. Plan: - Supportive care inpatient - Has follow up with her Oncologist in [place] in 2 weeks. # Atrial fibrillation Chronic, irregularly irregular. Anticoagulation status unclear (prior bleeding event). Plan: - Pending home med rec - Resume rate control agents if confirmed - Reassess anticoagulation need vs bleeding risk in light of recurrent falls # Subclinical Hypothyroidism TSH 10.25, Free T4 normal. Plan: - Continue levothyroxine once med rec confirms dose # Constipation CT abdomen with moderate constipation. Plan: - Continue lactulose 20 mg qday - Senna as needed Health Maintenance: Disposition: Admit to Tele Feeding: Diabetic/cardiac diet Thromboprophylaxis: Heparin SQ if not contraindicated GI prophylaxis: Protonix Code Status: Full code ----- Plan discussed with attending physician Dr. Medeiros and senior resident Dr. Niko Paul DO PGY-1 Attending Provider Attestation/Addendum I, Catie Medeiros DO, attest that I was physically present for the fuller portions of the service and evaluated the patient with the resident and I reviewed and discussed the case with the resident and agree with the resident's findings and plans of care as documented above Patient seen and eval this a.m. Daughter is at bedside stating that her mother has been declining for the past 2 weeks. Patient had recently been placed on a new chemotherapy drug which has caused the patient to be dizzy and had poor appetite. However, she continued to have worsening generalized weakness and frequent falls despite discontinuation of the medications. Patient endorses frequent urination, but no dysuria. She denies frequent UTIs. She denies any fevers or chills, nausea or vomiting. Patient has no complaints of chest pain or shortness of breath. Will follow-up with urine cultures at this time. She is currently on Rocephin. Patient states that she is tired. Pending physical therapy. Continue with IV fluids
[2024-11-14] MEDS: HEPARIN SOD INJ 5000 UNIT/ML VIAL SC ×2 (08:49→20:54)
[2024-11-14] MEDS: SODIUM CHLORIDE 0.9% 1000 ML 1,000 ML 75 ML IV (10:42)
[2024-11-14 11:47] LABS: Magnesium 8.2 mg/dL (1.6-2.6)
--- NOTE | 2024-11-14 12:03 | EKG_ITS ---
[facility] Test Date: 2024-11-14 Pat Name: SIMAEL DEWITT Department: Room: [facility] Gender: Female Personal Injury Paralegal: : 1940 Requested By: Milana Paul Order Number: [id number] Reading MD: Milana Paul Measurements Intervals [place] Rate: 98 P: [place]: QRS: -11 QRSD: 82 T: -71 QT: 362 QTc: 462 Interpretive Statements ATRIAL FIBRILLATION LOW QRS VOLTAGE IN PRECORDIAL LEADS [QRS DEFLECTION < 1.0 mV IN CHEST LEADS] POSSIBLE ANTERIOR MYOCARDIAL INFARCTION , OF INDETERMINATE AGE [30 ms Q WAVE IN V3/V4, OR R < 0.2 mV IN V4] MODERATE T-WAVE ABNORMALITY, CONSIDER LATERAL ISCHEMIA [-0.1+ mV T-WAVE IN I/aVL/V5/V6] MODERATE T-WAVE ABNORMALITY, CONSIDER INFERIOR ISCHEMIA [-0.1+ mV T-WAVE IN II/aVF] Compared to ECG 10/04/2024 10:55:21 Myocardial infarct finding now present Possible ischemia now present Sinus rhythm no longer present Sinus arrhythmia no longer present T-wave abnormality still present /store/S0/[id number]/[id number].pdf
--- NOTE | 2024-11-14 13:00 | PC.NURSE ---
UNABLE TO DO ORTHASTATIC V/S DUE TO PT WEAKNESS AND UNABLE TO STAND, DR. JIMENEZ MADE AWARE
[2024-11-14 13:11] LABS: Magnesium 2.8 mg/dL (1.6-2.6)
[2024-11-14] MEDS: INSULIN LISPRO (AdmeLOG) 1 UNIT/0.01 ML UNIT 6 UNIT SC (21:49)
[2024-11-15] VITALS (11 sets, daily range): BP systolic 91–120; BP diastolic 41–69; PULSE 77–112; RESP 12–96; TEMP 35.8–36.8; O2SAT 93–97; BMI 28.0; BMI 14.0; BMI 27.9
[2024-11-15] MEDS: SODIUM CHLORIDE 0.9% 1000 ML 1,000 ML 75 ML IV ×2 (01:51→20:48)
--- NOTE | 2024-11-15 08:11 | ESPR_ITS ---
<Statement entered by Jerardo Elizalde MD - 11/16/24 06:39> Patient was examined and case was reviewed with team including attending physician. Note reviewed, I agree with most of its contents and agree with the patient's care. Jerardo Elizalde MD PGY-2 Documentation for date of: 11/15/24 Subjective Subjective Interval history: 11/15/24: Overnight, patient was noted to have tachycardia of 101 and 104. Saturating at 95% on 3L. Patient denies any shortness of breath and denies using oxygen at home. Denies nausea, vomiting, diarrhea, or abdominal pain. Patient reports pruritus of her armpits and vagina and noted some rash in her armpits. Patient also reports low appetite. Exam Vital Signs Temp Pulse Resp BP Pulse Ox O2 Del Method O2 Flow Rate 96.6 F L 95 17 116/69 94 L Nasal Cannula 3 11/15/24 08:00 11/15/24 08:00 11/15/24 08:00 11/15/24 08:00 11/15/24 08:00 11/15/24 08:00 11/15/24 08:00 Narrative Exam General: Alert, oriented, fatigued, in no acute distress HEENT: MMM dry, PERRL, EOMI Neck: Supple, no JVD Cardiac: Irregularly irregular, no murmurs Lungs: Clear bilaterally, no rales/wheezes Abdomen: Soft, nontender to palpation, no rebound/guarding Extremities: No pretibial edema. No gross deformity noted. Skin: Warm, dry, healing forearm tear Neuro: Alert ?3, CN II?XII intact, no focal deficits Objective Labs 11/16/24 04:44 11/16/24 04:44 Labs: Laboratory Results - last 24 hr 11/14/24 11/14/24 10:52 12:49 Magnesium 8.2 H* 2.8 H ABG Interpretation ABG results: 11/14/24 05:21 VBG pH 7.47 VBG pCO2 29 L VBG pO2 62 H VBG Base Excess -2 Quality Measures Quality Measures VTE prophylaxis Advance care planning discussed with:: patient Assessment & Plan Assessment Current Active Medications: Generic Name Dose Route Start Last Admin Trade Name Freq PRN Reason Stop Dose Admin Acetaminophen 650 mg 11/14/24 05:44 Acetaminophen 325 Mg Tablet PO 12/14/24 05:43 Q6H PRN Fever >100.4 Acetaminophen 650 mg 11/14/24 05:44 Acetaminophen 325 Mg Tablet PO 12/14/24 05:43 Q6H PRN PAIN SCALE 1-3 (mild Hydrocodone Bitart/Acetaminophen 1 tab 11/14/24 05:44 Hydrocodone/Apap 5/325 Tablet PO 11/19/24 05:43 Q4HR PRN PAIN SCALE 4-6 (Moderate Atorvastatin Calcium 10 mg 11/15/24 21:00 Atorvastatin Calcium 10 Mg Tablet PO 12/15/24 20:59 2100 JENNIFER Protocol Dextrose 25 ml 11/14/24 05:44 Dextrose 50%-Water Inj 50 Ml Syringe IV 12/14/24 05:43 Q15MIN PRN BG 50-70 responsive npo pt Dextrose 50 ml 11/14/24 05:44 Dextrose 50%-Water Inj 50 Ml Syringe IV 12/14/24 05:43 Q15MIN PRN BG <50 OR BG <70 & pt unresponsive Glucagon 1 mg 11/14/24 05:44 Glucagon Inj 1 Mg Vial IM Q15MIN PRN BG <70, and no IV access Heparin Sodium (Porcine) 5,000 unit 11/14/24 09:00 11/14/24 20:54 Heparin Sod Inj 5000 Unit/Ml Vial SC 11/28/24 08:59 5,000 unit Q12HR JENNIFER Administration Ceftriaxone Sodium/Dextrose 1 gm in 50 mls @ 100 mls/hr 11/15/24 09:00 Rocephin/D5w 1gm Iv Premix IV 11/22/24 08:59 QDAY JENNIFER Sodium Chloride 1,000 mls @ 75 mls/hr 11/14/24 10:22 11/15/24 01:51 Ns IV 12/14/24 10:21 75 mls/hr .[id number] JENNIFER Administration Insulin Human Lispro 0 unit 11/14/24 07:30 11/14/24 17:51 Insulin Lispro (Admelog) 1 Unit/0.01 Ml Unit SC 12/14/24 07:29 4 unit AC JENNIFER Administration Protocol Lactulose 20 gm 11/15/24 09:00 Lactulose Syrup 20 Gm/30 Ml Udc PO 12/15/24 08:59 DAILY JENNIFER Protocol Levothyroxine Sodium 100 mcg 11/15/24 09:00 Levothyroxine Sodium 100 Mcg Tablet PO 12/15/24 08:59 ACBR JENNIFER Ondansetron HCl 4 mg 11/14/24 05:44 Ondansetron Inj 2 Mg/Ml Inj 2 Ml IVP 12/14/24 05:43 Q6H PRN NAUSEA OR VOMITING Protocol Pantoprazole Sodium 40 mg 11/14/24 09:00 11/14/24 08:48 Pantoprazole Inj 40 Mg Vial IVP 12/14/24 08:59 40 mg QDAY JENNIFER Administration Sennosides 1 tab 11/14/24 05:44 Senna Tablet PO 12/14/24 05:43 QDAY PRN constipation Protocol Plan 84F with PMH of atrial fibrillation, DM2, HTN, hypothyroidism, and metastatic RCC s/p nephrectomy (with brain/lung mets) presenting after ground level mechanical fall, with progressive weakness, recurrent falls since starting everolimus + lenvatinib in September (stopped 11/10 by oncologist), and dysuria, found to have UTI with lactic acidosis, TAMMIE, hypomagnesemia, and hyperglycemia. # SIRS due to UTI #Lactic acidosis (resolved) Patient with UTI (positive nitrites, leukocyte esterase, bacteria, pyuria) and lactic acidosis (3.7). Meets 1 SIRS criterion (tachycardia) with evidence of renal dysfunction (SOFA 1 for Cr 1.5 from baseline 1.0). No fever, normal WBC, normotensive, and mentating appropriately. Does not meet Sepsis-3 definition of sepsis but remains high risk for progression given frailty, malignancy, and poor oral intake. Lactate now improved to 1.4 Urine culture is positive for gram negative rods Patient reports generalized pruritus and mild rash mainly in her armpits since the start of rocephin Plan: - Stop IV ceftriaxone (start 11/14) given potential allergic reaction - Pending sensitivity of urine culture. We will start antibiotics once sensitivity is back. - Ordered nystatin cream - Ordered Benadryl PO - Pending blood and urine sensitivity - Monitor for fever, hemodynamic changes # TAMMIE (Resolved) Creatinine 1.5 (baseline ~1.0) on admission now at 0.8. Likely prerenal secondary to dehydration/poor PO intake Plan: - Continue maintenance IVF NS 75 - Strict I/Os - Daily CMP - Avoid nephrotoxins # Electrolyte Abnormalities #Hypomagnesemia #Hyponatremia (Resolved) #Hypophosphatimia #Hypokalemia M.5, phos:1.7, K:3.1 Plan: - Repleted Mg, phos, and K - Continue IV fluids - Daily CMP # Recurrent Falls/Weakness # Dehydratin Multiple falls since mid-September temporally associated with everolimus/lenvatinib. Multifactorial with frailty, poor intake, dehydration, infection, and cancer- related decline. Plan: - PT evaluation - Fall precautions - Pain control with acetaminophen; avoid oversedation with opioids - Monitor orthostatic vitals # Hyperglycemia, DM2 Glucose 178, not on insulin in ED. Plan: - SSI insulin - Monitor POC glucose - Hypoglycemia protocol in place # Metastatic RCC, off therapy Everolimus + lenvatinib mid-September --> stopped 11/10 due to falls. Pulmonary and brain mets. Oncology follow-up 12/06. -Patient reports low appetite Plan: - Ordered Dronabinol x1 - Supportive care inpatient - Has follow up with her Oncologist in [place] in 2 weeks. # Atrial fibrillation Chronic, irregularly irregular. Anticoagulation status unclear (prior bleeding event). Plan: - Held home metoprolol given low BP - Reassess anticoagulation need vs bleeding risk in light of recurrent falls # Subclinical Hypothyroidism TSH 10.25, Free T4 normal. Plan: - Continue home levothyroxine # Constipation CT abdomen with moderate constipation. Plan: - Continue lactulose 20 mg qday - Senna as needed Health Maintenance: Disposition: Admit to Tele Feeding: Regular diet Thromboprophylaxis: Heparin SQ if not contraindicated GI prophylaxis: Protonix Code Status: Full code ----- Plan discussed with attending physician Dr. Medeiros and senior resident Dr. Niko Paul DO PGY-1 Attending Provider Attestation/Addendum Catie Chu DO, attest that I was physically present for the fuller portions of the service and evaluated the patient with the resident and I reviewed and discussed the case with the resident and agree with the resident's findings and plans of care as documented above Patient seen and eval this a.m. She states that she is feeling improved. She had some breakfast, but did not eat it all due to preference. Patient appears much more alert and interactive today. She complains of rash in her axillary folds and vaginal regions. The rash is pruritic and sensitive to touch. She has been using clotrimazole cream at home. Will give nystatin. She also stated that the purewick was causing more irritation and has since been removed. Patient was able to work with PT and get up to go to commode. She is overall gained more strength overnight. pending urine cultures, which are positive for GNR. Will DC rocephin as patient is allergic to penecillins and may giovanny causing the rash. Will f/u with final cultures and sensitvitieis. Anticipate DC in next 24h. Will give a dose of dronabinol as daughter states that if patient does not eat, may need an appetite stimulant per her oncologist.
[2024-11-15] MEDS: HEPARIN SOD INJ 5000 UNIT/ML VIAL SC ×2 (08:32→20:48)
[2024-11-15] MEDS: LEVOTHYROXINE SODIUM 100 MCG TABLET PO (08:32)
[2024-11-15] MEDS: cefTRIAXone/D5w 1gm IV premix 1 GM/50 ML BAG IV (08:33)
[2024-11-15 08:58] LABS: Basophils # (Auto) 0.1 Thou/mm3 (0.0-0.2); Basophils % (Auto) 1 % (0-2.5); Eosinophils # (Auto) 0.0 Thou/mm3 (0.0-0.5); Eosinophils % (Auto) 0 % (0-10); Hematocrit 36.1 % (36.0-46.0); Hemoglobin 11.8 g/dL (12.0-16.0); Immature Granulocytes Auto 0.03 Thou/mm3 (0.00-0.00); Lymphocytes # (Auto) 1.8 Thou/mm3 (1.0-4.8); Lymphocytes % (Auto) 35 % (10-50); Mean Corpuscular HGB Conc 32.7 g/dl (31.0-37.0); Mean Corpuscular Hemoglobin 30.8 pg (25.0-35.0); Mean Corpuscular Volume 94 fL (80-100); Monocytes # (Auto) 0.5 Thou/mm3 (0.0-0.8); Monocytes % (Auto) 10 % (0-12); Neutrophils # (Auto) 2.7 Thou/mm3 (1.8-7.7); Neutrophils % (Auto) 53 % (37-80); Nucleated Red Blood Cell # 0.03 Thou/mm3 (0.00-0.00); Nucleated Red Blood Cell % 1 /100 WBC (0); Platelet Count 113 Thou/mm3 (140-440); RDW Standard Deviation 49.1 fL (36.4-46.3); Red Blood Count 3.83 Miln/mm3 (4.00-5.20); White Blood Count 5.1 Thou/mm3 (3.6-11.0)
[2024-11-15 09:23] LABS: Alanine Aminotransferase 81 U/L (10-49); Albumin, Serum 3.4 gm/dL (3.4-4.8); Albumin/Globulin Ratio 1.8 (1.2-2.2); Alkaline Phosphatase 113 U/L (46-116); Anion Gap 12 (7-16); Aspartate Amino Transferase 86 U/L (0-34); BUN/Creatinine Ratio 14 Ratio (12-20); Bilirubin,Total 0.7 mg/dL (0.3-1.2); Blood Urea Nitrogen 11 mg/dL (9-23); Calcium 8.8 mg/dL (8.3-10.6); Calcium (Corrected) 9.3 mg/dL (8.5-10.1); Carbon Dioxide 19.3 mMol/L (20.0-31.0); Chloride 106 mMol/L (98-107); Creatinine (Component) 0.8 mg/dL (0.6-1.3); Estimated Creatinine Clearance 57.5 mL/min (>60); Globulin 1.9 gm/dL (2.3-3.5); Glucose 178 mg/dL (74-106); Magnesium 1.5 mg/dL (1.6-2.6); Osmolality,Calculated 277 (275-295); Phosphorous 1.7 mg/dL (2.4-5.1); Potassium 3.1 mMol/L (3.4-5.1); Sodium 137 mMol/L (136-145); Total Protein 5.3 gm/dL (5.7-8.2); eGFR > 60 See Note
--- NOTE | 2024-11-15 11:17 | EKG_ITS ---
[facility] Test Date: 2024-11-15 Pat Name: ISMAEL DEWITT Department: Room: S273A Gender: Female Executive Admin: IVON : 1940 Requested By: Milana Paul Order Number: [id number] Reading MD: Milana Paul Measurements Intervals [place] Rate: 120 P: [place]: QRS: 38 QRSD: 89 T: 213 QT: 314 QTc: 444 Interpretive Statements ATRIAL FIBRILLATION WITH RAPID VENTRICULAR RESPONSE LOW QRS VOLTAGE IN PRECORDIAL LEADS POSSIBLE ANTERIOR MYOCARDIAL INFARCTION , OF INDETERMINATE AGE MODERATE T-WAVE ABNORMALITY, CONSIDER LATERAL ISCHEMIA MODERATE T-WAVE ABNORMALITY, CONSIDER INFERIOR ISCHEMIA Compared to ECG 11/14/2024 01:40:23 No significant changes /store/S0/[id number]/ecg/[id number].pdf
--- NOTE | 2024-11-15 11:18 | PC.SS ---
Patient Barb Carver is a 84 Year old female admitted for Fall/Dehydration. SS contacted patient's daughter, Sunni Ríos who reports patient lives with her and her . Sunni reports she is patient's surrogate decision maker, [phone]. She reports that prior to admission patient was utilizing a FWW and wheelchair, patient was able to complete all ADL's independently. [facility] pharmacy in [place]. PCP: Rajesh Lim. SS Discussed discharge options and patient's daughter informed SS that she is open to SNF if PT recommends. Discharge plan to be determined after PT evaluation. Discharge plan: Pending, Needs PT evaluation Next of kin: Daughter, Sunni Ríos [phone]
[2024-11-15] MEDS: Magnesium Sulfate 4 GM Ivpb 4 GM/50 ML BAG IV (11:30)
[2024-11-15] MEDS: NAPH,KPH MBDB 1 PACKET (1.5 GM) PO (11:31)
[2024-11-15] MEDS: INSULIN LISPRO (AdmeLOG) 1 UNIT/0.01 ML UNIT SC ×2 (11:39→17:12)
[2024-11-15] MEDS: DiphenhydrAMINE ELIX 25 MG/10 ML UDC PO (11:50)
[2024-11-15] MEDS: NYSTATIN CR 30 GM TUBE TOP ×2 (11:51→21:17)
--- NOTE | 2024-11-15 15:27 | PC.SS ---
SS followed up with patient's daughter Sunni in regards to Discharge plan. SS informed her that PT is recommending HH. Sunni informed SS that patient's last appointment with her PCP was about a month ago. Sunni has no preference in HH agency.
[2024-11-15] MEDS: INSULIN LISPRO (AdmeLOG) 1 UNIT/0.01 ML UNIT 3 UNIT SC (20:48)
[2024-11-15] MEDS: ATORVASTATIN CALCIUM 10 MG TABLET PO (20:49)
[2024-11-15] MEDS: METOPROLOL SUCCINATE XL 25 MG TABCR PO (20:49)
[2024-11-15] MEDS: ACETAMINOPHEN 325 MG TABLET 650 MG PO (21:17)
[2024-11-16] VITALS (7 sets, daily range): BP systolic 100–120; BP diastolic 49–70; PULSE 75–107; RESP 12–26; TEMP 35.9–36.2; O2SAT 93–99; BMI 28.0
[2024-11-16] MEDS: ONDANSETRON INJ 2 MG/ML INJ 2 ML 4 MG IVP (03:08)
[2024-11-16] MEDS: LEVOTHYROXINE SODIUM 100 MCG TABLET PO (05:04)
[2024-11-16 06:04] LABS: Basophils # (Auto) 0.0 Thou/mm3 (0.0-0.2); Basophils % (Auto) 1 % (0-2.5); Eosinophils # (Auto) 0.0 Thou/mm3 (0.0-0.5); Eosinophils % (Auto) 1 % (0-10); Hematocrit 31.0 % (36.0-46.0); Hemoglobin 10.2 g/dL (12.0-16.0); Immature Granulocytes Auto 0.03 Thou/mm3 (0.00-0.00); Lymphocytes # (Auto) 1.4 Thou/mm3 (1.0-4.8); Lymphocytes % (Auto) 31 % (10-50); Mean Corpuscular HGB Conc 32.9 g/dl (31.0-37.0); Mean Corpuscular Hemoglobin 30.8 pg (25.0-35.0); Mean Corpuscular Volume 94 fL (80-100); Monocytes # (Auto) 0.5 Thou/mm3 (0.0-0.8); Monocytes % (Auto) 12 % (0-12); Neutrophils # (Auto) 2.5 Thou/mm3 (1.8-7.7); Neutrophils % (Auto) 55 % (37-80); Nucleated Red Blood Cell # 0.06 Thou/mm3 (0.00-0.00); Nucleated Red Blood Cell % 1 /100 WBC (0); Platelet Count 105 Thou/mm3 (140-440); RDW Standard Deviation 49.1 fL (36.4-46.3); Red Blood Count 3.31 Miln/mm3 (4.00-5.20); White Blood Count 4.5 Thou/mm3 (3.6-11.0)
[2024-11-16 06:31] LABS: Alanine Aminotransferase 54 U/L (10-49); Albumin, Serum 3.2 gm/dL (3.4-4.8); Albumin/Globulin Ratio 1.8 (1.2-2.2); Alkaline Phosphatase 101 U/L (46-116); Anion Gap 12 (7-16); Aspartate Amino Transferase 55 U/L (0-34); BUN/Creatinine Ratio 10 Ratio (12-20); Bilirubin,Total 0.7 mg/dL (0.3-1.2); Blood Urea Nitrogen 7 mg/dL (9-23); Calcium 8.3 mg/dL (8.3-10.6); Calcium (Corrected) 8.9 mg/dL (8.5-10.1); Carbon Dioxide 20.0 mMol/L (20.0-31.0); Chloride 104 mMol/L (98-107); Creatinine (Component) 0.7 mg/dL (0.6-1.3); Estimated Creatinine Clearance 65.8 mL/min (>60); Globulin 1.8 gm/dL (2.3-3.5); Glucose 168 mg/dL (74-106); Magnesium 2.1 mg/dL (1.6-2.6); Osmolality,Calculated 273 (275-295); Phosphorous 1.3 mg/dL (2.4-5.1); Potassium 3.6 mMol/L (3.4-5.1); Sodium 136 mMol/L (136-145); Total Protein 5.0 gm/dL (5.7-8.2); eGFR > 60 See Note
--- NOTE | 2024-11-16 08:19 | ESDS_ITS ---
<Statement entered by Catie Medeiros DO - 11/17/24 08:31> I, Catie Medeiros DO, attest that I was physically present for the fuller portions of the service and evaluated the patient with the resident and I reviewed and discussed the case with the resident and agree with the resident's findings and plans of care as documented above <Statement entered by Jalyn Dougherty MD - 11/16/24 17:51> I discussed with and supervised the consultant internship physician who took care of this patient. I personally saw and examined the patient and discussed the assessment and plan with the entire medicine team, including my attending Dr. Medeiros, I agree with most of the assessment and plan as documented below Jalyn Dougherty M.D. PGY-3 Planned Discharge Date 11/16/24 DS: Providers Provider Date of admission: 11/14/24 05:44 Primary care physician: Rajesh Lim MD Admitting Provider: RESIDENT Alanis Attending Provider on Admission: Catie Medeiros DO Consults: 11/14/24 05:49 PT [Referral Physical Therapy] Routine Comment: Physician Instructions: 11/14/24 23:06 Referral Wound Care Routine Comment: new admit with skin tear to left elbow area, Instructions: patient sees wound clinic and says it is painful to change dressing and refused us to remove and take a pic 11/15/24 09:51 Referral Registered Dietitian Urgent Comment: Attending Provider on DC: Dr. Medeiros Discharging Provider: Resident Julián Anticipated date of discharge: 11/16/24 DS: Diagnosis Problem List Completed Was Problem List Reviewed/Reconciled?: Yes Hospital Course Hospital Course Hospital course: 84F with PMH of atrial fibrillation, DM2, HTN, hypothyroidism, and metastatic RCC s/p nephrectomy (with brain/lung mets) presenting after ground level mechanical fall, with progressive weakness, recurrent falls since starting everolimus + lenvatinib in September (stopped 11/10 by oncologist), and dysuria, found to have UTI (positive nitrites, leukocyte esterase, bacteria, pyuria) and lactic acidosis (3.7 which improved to 1.4), TAMMIE, hypomagnesemia, and hyperglycemia. Met 1 SIRS criterion (tachycardia) with evidence of renal dysfunction (SOFA 1 for Cr 1.5 from baseline 1.0). On admission, patient was afebrile with normal WBC, normotensive, and mentating appropriately. Patient was started on IV rocephin, however next day she complained of pruritus and rash mainly in her armpits. Thus, Rocephin was discontinued and benadryl and nystatin cream were provided with good relief of symptoms. Her rash which mainly present in the folds could be due to fungal infection which we will prescribe her with nystatin cream. Urine culture positive for gram negative rods Ecoli. Urine culture sensitive for bacterim and macrobid; however due to past known allergies to these medications, we will prescribe her with doxycycline which is also sensitive. Patient's home metoprolol was held due to soft BP. Otherwise patient remained afebrile with stable vital signs during her hospital course. On admission, patient was found to have TAMMIE with creatinine 1.5 (baseline ~1.0) which improved to 0.7 with IVF. This was most likely prerenal secondary to dehydration and poor PO intake. CTAP showed moderate constipation which was treated with Lactulose. Patient's electrolyte abnormalities of hypomagnesimia, hypokalemia and hypophosphatemia were all repleted and monitored throughout her hospital course. Patient's all other medical problems were managed accordingly while in the hospital. Patient is in stable condition for discharge home with home health physical therapy and prescription for Doxycycline and Nystatin cream and follow up with PCP outpatient within a week. All questions answered and ED return precautions given. # SIRS due to E.coli UTI #Lactic acidosis # TAMMIE # Electrolyte Abnormalities #Hypomagnesemia #Hyponatremia (Resolved) #Hypophosphatimia #Hypokalemia #Rash # Recurrent Falls/Weakness # Dehydration # Hyperglycemia, DM2 # Metastatic RCC, off therapy # Atrial fibrillation # Subclinical Hypothyroidism # Constipation Please take your home medications as prescribed. Please start taking your new medication: Doxycycline 100mg twice daily for five days, Dronabinol 2.5mg once daily to help with your appetite, and Nystatin cream for your rashes. Please see your PCP within 1 week, if you do not have a PCP please make an appointment with the [facility] at [phone]. ----- Plan discussed with attending physician Dr. Medeiros and senior resident Dr. Nikkie Paul, DO PGY-1 Status at Discharge Functional status at discharge: independent ambulation Overall status at discharge: patient is back to baseline Time Spent with Patient Time attestation: Total time spent providing and/or coordinating discharge services: Time spent: Greater than 30 minutes Exam Vital Signs Temp Pulse Resp BP Pulse Ox O2 Del Method O2 Flow Rate 97.0 F 78 20 120/67 96 Nasal Cannula 2 11/16/24 04:00 11/16/24 07:29 11/16/24 07:29 11/16/24 04:00 11/16/24 07:29 11/16/24 04:00 11/16/24 07:29 Narrative Exam General: Alert, oriented, fatigued, in no acute distress HEENT: MMM dry, PERRL, EOMI Neck: Supple, no JVD Cardiac: Irregularly irregular, no murmurs Lungs: Clear bilaterally, no rales/wheezes Abdomen: Soft, nontender to palpation, no rebound/guarding Extremities: No pretibial edema. No gross deformity noted. Skin: Warm, dry, healing forearm tear. erythematous rash in armpits bilaterally. Mild erythematous rash in upper back. Neuro: Alert ?3, CN II?XII intact, no focal deficits Discharge Plan Plan Patient Disposition: Home w/HOME HEALTH Patient condition on transfer: Stable Prescriptions/Referrals Prescriptions/Med Rec: New nystatin 100,000 unit/gram Cream 1 applic top BID 30 Days Qty: 30 0RF doxycycline monohydrate 100 mg capsule 100 mg PO BID Qty: 10 0RF dronabinol 2.5 mg capsule 2.5 mg PO QDAY Qty: 30 0RF Rx Instructions: administer before lunch and evening meal/dinner Continued benazepril 5 mg Tablet 5 mg PO QDAY lovastatin 40 mg Tablet 40 mg PO DAILY levothyroxine 100 mcg Tablet 100 mcg PO DAILY metoprolol succinate 25 mg tablet extended release 24 hr 25 mg PO Q12H Patient Comments: TAKE ONE TABLET BY MOUTH EVERY DAY FOR BLOOD PRESSURE dapsone 100 mg tablet 100 mg PO QDAY Patient Comments: TAKE ONE TABLET BY MOUTH EVERY DAY prednisone 10 mg tablet 10 mg PO QDAY Patient Comments: TAKE ONE TABLET BY MOUTH EVERY MORNING WITH FOOD loperamide 2 mg capsule 2 mg PO QID Patient Comments: TAKE ONE CAPSULE BY MOUTH FOUR TIMES DAILY FOR DIARRHEA meclizine 12.5 mg tablet 12.5 mg PO TID Patient Comments: TAKE ONE TABLET BY MOUTH THREE TIMES DAILY NEEDED FOR NAUSEA AND VOMITING diclofenac sodium 1 % gel 4 g TOPICAL QID Patient Comments: APPLY FOUR GRAM TRANSDERMALLY FOUR TIMES DAILY [id number]-qgiqskmmqtrxx-bzhb 50-325-40 mg tablet 1 tab PO PRN Patient Comments: TAKE ONE TABLET BY MOUTH EVERY 6 HOURS NEEDED FOR HEADACHE timolol maleate 0.5 % Drops 1 drp OPHTHALMIC (EYE) BID metformin 500 mg Tablet Extended Release 24 Hr 500 mg PO QDAY Discontinued glimepiride 1 mg Tablet 1 mg PO QDAY Referrals: Rajesh Lim MD [Primary Care Provider] - Patient/Caregiver Discharge Instructions Other Discharge Activity Instructions:: Please take your home medications as prescribed. Please start taking your new medication: Doxycycline 100mg twice daily for five days, Dronabinol 2.5mg once daily to help with your appetite, and Nystatin cream for your rashes. Please see your PCP within 1 week, if you do not have a PCP please make an appointment with the [facility] at [phone]. Education Materials: Dehydration, Dehydration and Rehydration in ... Print Language: Taiwanese Stand Alone Forms: Ivone Award Info., Patient Portal Info Letter Discharge Order Discharge Orders: Discharge (Routine); Ordered 11/16/24 Ordered By: Catie Medeiros Quality Discharge Quality Measures VTE prophylaxis
[2024-11-16] MEDS: NYSTATIN CR 30 GM TUBE TOP (09:00)
[2024-11-16] MEDS: INSULIN LISPRO (AdmeLOG) 1 UNIT/0.01 ML UNIT SC ×3 (09:25→17:03)
[2024-11-16] MEDS: LACTULOSE SYRUP 20 GM/30 ML UDC PO (09:26)
[2024-11-16] MEDS: HEPARIN SOD INJ 5000 UNIT/ML VIAL SC (09:26)
[2024-11-16] MEDS: METOPROLOL SUCCINATE XL 25 MG TABCR PO (09:26)
[2024-11-16] MEDS: NAPH,KPH MBDB 1 PACKET (1.5 GM) PO (09:27)
[2024-11-16] MEDS: PANTOPRAZOLE 40 MG TABLET PO (09:27)
[2024-11-16] MEDS: DOXYCYCLINE 100 MG TABLET PO (09:27)
[2024-11-16] MEDS: SODIUM CHLORIDE 0.9% 1000 ML 1,000 ML 75 ML IV (12:20)
--- NOTE | 2024-11-17 08:29 | PC.CC ---
Addendum entered by Fco Lucero RN 11/17/24 19:04: Start of care date with [facility] is 11/18/24. Addendum entered by Fco Lucero RN 11/17/24 09:13: [facility] accepted [facility] pt[facility] Pending start of care date. Original Note: No preference of HH agency per SS notes. HH referral sent on [facility]. Awaiting responses. Pending start of care date.
== END 2024-11-16 17:30 | disposition home health service (06) | DRG 690 ==
LOC: SERX 05:40 → SERHOLD 06:12 → S2NX 17:44
PROVIDERS: Student in an Organized Health Care Education/Training Program; Emergency Provider Emergency Medicine; PCP Family Medicine; Visit Provider Internal Medicine
DX: N39.0 Urinary tract infection, site not specified (principal); C78.00 Secondary malignant neoplasm of unspecified lung; I48.20 Chronic atrial fibrillation, unspecified; E87.1 Hypo-osmolality and hyponatremia; N17.9 Acute kidney failure, unspecified; E87.20 Acidosis, unspecified; C79.31 Secondary malignant neoplasm of brain; R65.10 Systemic inflammatory response syndrome (SIRS) of non-infectious origin without acute organ dysfunction; K59.00 Constipation, unspecified; R29.6 Repeated falls; E11.65 Type 2 diabetes mellitus with hyperglycemia; I10 Essential (primary) hypertension; E03.8 Other specified hypothyroidism; S51.819A Laceration without foreign body of unspecified forearm, initial encounter; W01.0XXA Fall on same level from slipping, tripping and stumbling without subsequent striking against object, initial encounter; Z79.01 Long term (current) use of anticoagulants; E86.0 Dehydration; R54 Age-related physical debility; E83.42 Hypomagnesemia; E86.1 Hypovolemia; Z85.528 Personal history of other malignant neoplasm of kidney; R63.0 Anorexia; B37.9 Candidiasis, unspecified; B96.20 Unspecified Escherichia coli [E. coli] as the cause of diseases classified elsewhere; E78.5 Hyperlipidemia, unspecified; E83.39 Other disorders of phosphorus metabolism; E87.6 Hypokalemia; Y92.009 Unspecified place in unspecified non-institutional (private) residence as the place of occurrence of the external cause; Z79.84 Long term (current) use of oral hypoglycemic drugs; Z90.5 Acquired absence of kidney; L29.9 Pruritus, unspecified; R21 Rash and other nonspecific skin eruption
CPT/HCPCS: 36415; 70450; 71045; 71250; 72125; 73090; 73552; 74176; 80053; 81001; 82010; 82248; 82550; 82803; 83605; 83690; 83735; 83880; 84100; 84145; 84439; 84443; 84484; 85025; 85652; 86140; 87040; 87077; 87086; 87186; 87400; 87811; 93005; 96361; 96365; 96366; 96375; 96376; 97162; 99284; J0696; J1200; J1644; J1815; J2270; J2405; J2470; J3475; J7030; Q0167; A9270

== ENCOUNTER 2024-11-27 16:14 | Emergency (ER) | payer MEDICARE, BC, SELFPAY ==
[2024-11-27 16:18] VITALS: BP 100/59; PULSE 74; RESP 18; TEMP 36.3; O2SAT 97; BMI 27.2
--- NOTE | 2024-11-27 16:18 | EKG_ITS ---
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1940 Requested By: Frantz Ventura Order Number: [id number] Reading MD: Frantz Ventura Measurements Intervals [place] Rate: 52 P: MS: QRS: -20 QRSD: 83 T: -11 QT: 418 QTc: 392 Interpretive Statements SUPRAVENTRICULAR BRADYCARDIA LOW QRS VOLTAGE IN PRECORDIAL LEADS [QRS DEFLECTION < 1.0 mV IN CHEST LEADS] ANTEROSEPTAL MYOCARDIAL INFARCTION , OF INDETERMINATE AGE [40+ ms Q WAVE IN V1-V4] Compared to ECG 11/15/2024 11:57:48 Atrial fibrillation no longer present T-wave abnormality no longer present Possible ischemia no longer present Myocardial infarct finding still present /store/S0/[id number].pdf
[2024-11-27 16:19] VITALS: PULSE 60; RESP 16; O2SAT 98
--- NOTE | 2024-11-27 16:43 | PD.EDADULT ---
ED General RME/HPI General Chief complaint: Weakness Stated complaint: WEAKNESS Time Seen by Provider: 11/27/24 16:18 Arrival date/time: 11/27/24 16:14 CC: Weakness, diarrhea nausea vomiting x 1 HPI onset of diarrhea nausea vomiting started today. Patient multiple doses of watery diarrhea weakness has been ongoing since last admission approximately 10 days ago. Patient has a history of diabetes hypertension hypothyroidism A-fib and metastatic renal cell carcinoma status post nephrectomy with brain and lung mets. Patient denies fever chest pain or shortness of breath. Related Data Home Medications ?Medication ?Instructions ?Recorded ?Confirmed benazepril 5 mg tablet 5 mg PO QDAY 04/21/18 11/14/24 levothyroxine 100 mcg tablet 100 mcg PO DAILY 04/21/18 11/14/24 lovastatin 40 mg tablet 40 mg PO DAILY 04/21/18 11/14/24 metformin 500 mg tablet,extended 500 mg PO QDAY 02/10/22 11/14/24 release 24 hr timolol maleate 0.5 % eye drops 1 drp ophthalmic (eye) BID 02/10/22 11/14/24 [id number]-wuycanovtctxk-sknsglgr 1 tab PO PRN 11/14/24 11/14/24 50 mg-325 mg-40 mg tablet dapsone 100 mg tablet 100 mg PO QDAY 11/14/24 11/14/24 diclofenac sodium 1 % topical gel 4 g topical QID 11/14/24 11/14/24 loperamide 2 mg capsule 2 mg PO QID 11/14/24 11/14/24 meclizine 12.5 mg tablet 12.5 mg PO TID 11/14/24 11/14/24 metoprolol succinate 25 mg 25 mg PO Q12H 11/14/24 11/14/24 tablet,extended release 24 hr prednisone 10 mg tablet 10 mg PO QDAY 11/14/24 11/14/24 Previous Rx's ?Medication ?Instructions ?Recorded doxycycline monohydrate 100 mg 100 mg PO BID #10 caps 11/16/24 capsule dronabinol 2.5 mg capsule 2.5 mg PO QDAY #30 caps 11/16/24 nystatin 100,000 unit/gram topical 1 applic top BID 30 days #30 grams 11/16/24 cream Allergies Allergy/AdvReac Type Severity Reaction Status Date / Time adhesive tape Allergy Mild Redness of Unverified 11/27/24 16:19 Skin ceftriaxone Allergy Mild rash Verified 11/27/24 16:19 nitrofurantoin Allergy Mild Itching Verified 11/27/24 16:19 sulfamethoxazole Allergy Mild Itching Verified 11/27/24 16:19 trimethoprim Allergy Mild Itching Verified 11/27/24 16:19 Penicillins Allergy Unknown Itching Verified 11/27/24 16:19 Review of Systems Review of Systems Narrative Review of Systems: GEN: No fever, no chills, no weight loss EYES: No discharge, no visual changes, no pain HEENT: No ear pain, no congestion, no sore throat PULM: No shortness of breath, no cough, no congestion CV: No chest pain, no dyspnea on exertion, no palpitations GI: + nausea, no vomiting, + diarrhea, no pain, no constipation : No frequency, no urgency, no dysuria MUSC/SKEL: No joint pain, no back pain SKIN: No rash PSYCH: No hallucinations, no depression HEME/LYMPH: No easy bleeding or bruising tendencies NEURO: No weakness, no headache Past Medical History Past Medical History NEUROLOGIC: Positive Migraine CARDIAC: Positive Cardiac Disorders, Atrial Fibrillation, Atherosclerotic Heart Disease, Hypercholesterolemia and Hypertension; Negative Congestive Heart Failure RESPIRATORY: Negative Chronic Obstructive Pulmonary Disease (COPD) GASTROINTESTINAL: Positive Diverticulitis GENITOURINARY: Positive Renal Disease MUSCULOSKELETAL: Positive Arthritis ENT: Positive Cataracts ENDOCRINE: Positive Diabetes Mellitus Type 2 and Hypothyroidism; Negative Diabetes Mellitus Type 1 HEMATOLOGIC: Negative Blood Disorders OTHER HISTORY: Positive Hospitalization, Shingles, Falls, Radiation Therapy, Chicken Pox, Measles, Cancer and Lung Cancer (renal ca, mets to lungs, brain); Negative Autoimmune Disease, Down Syndrome, Developmental Delay, Blood Transfusions or Anesthesia Reactions Family History FAMILY HISTORY: Positive Family Cardiac Disorders Surgical History SURGICAL: Positive Nephrectomy (L.2006), Neurologic Surgery (crainiotomy) and Hysterectomy Social History SMOKING STATUS: Never smoker ED Exam Narrative Physical exam: [General: Obese deconditioned, in mild discomfort but not in any acute distress Head normocephalic HEENT: Within acceptable limits Neck is supple nontender Chest equal chest rise nontender to palpation Respiratory: Clear to auscultation no wheezes crackles or rubs CV: Rate rhythm is regular no murmurs rubs or clicks Abdomen is distended secondary to body habitus soft nontender no masses positive bowel sounds all 4 quadrants Back: No CVA tenderness no spinous process tenderness from cervical spine thoracic and lumbar spine Skin: Pale, intact no petechiae rash induration ulceration or crepitus Extremities: Moving all extremity against resistance cap refill less than 2 seconds neurosensory intact Neuro: Awake alert oriented x3 Glascow coma 15 no focal deficits] Course Course Course Narrative: Reassessment of this patient at 2114, the patient has had no diarrhea no abdominal pain no nausea or vomiting for the last 3-1/2 hours. I have low index of suspicion that this is a C. difficile. However the patient has a atrial bradycardia, and a BNP that is elevated. Pt case discsse with Dr Claros who agrees with DC Quality Measures none Orders Category Date Time Status EKG (ED ONLY) *Do not use* NOW Care 11/27/24 16:18 Completed EKG (ED ONLY) *Do not use* NOW Care 11/27/24 21:26 Active IV [Insert IV] NOW Care 11/27/24 17:12 Completed In and Out Catheter X1 Care 11/27/24 17:12 Completed EKG (ED Only) Stat Exams 11/27/24 16:18 Draft EKG (ED Only) Stat Exams 11/27/24 21:26 Draft B-Type Natriuretic Peptide Stat Lab 11/27/24 17:57 Completed CBC Stat Lab 11/27/24 17:57 Completed Comprehensive Metabolic Panel Stat Lab 11/27/24 17:27 Completed Drug Screen,Urine Stat Lab 11/27/24 16:55 Completed Lipase Stat Lab 11/27/24 17:27 Completed Magnesium Stat Lab 11/27/24 17:27 Completed Partial Thromboplastin Time Stat Lab 11/27/24 17:27 Completed Prothrombin Time with INR Stat Lab 11/27/24 17:27 Completed Urinalysis, C/S if Indicated Stat Lab 11/27/24 16:55 Completed Urine Culture Stat Lab 11/27/24 16:55 Received Magnesium Sulfate 2 GM Ivpb [Magnesium Sulfate Ivpb] Med 11/27/24 19:02 Discontinued 2 gm in 50 ml IV X1 Vital Signs Vital signs: Vital Signs Temperature 97.4 F 11/27/24 16:18 Pulse Rate 74 11/27/24 16:18 Respiratory Rate 18 11/27/24 16:18 Blood Pressure 100/59 L 11/27/24 16:18 Pulse Oximetry (%) 97 11/27/24 16:18 Oxygen Delivery Method Room Air 11/27/24 16:18 Discharge Plan Plan Patient Disposition: HOME (Self Care) Patient condition on transfer: Stable Prescriptions/Referrals Prescriptions/Med Rec: No Action benazepril 5 mg Tablet 5 mg PO QDAY lovastatin 40 mg Tablet 40 mg PO DAILY levothyroxine 100 mcg Tablet 100 mcg PO DAILY metoprolol succinate 25 mg tablet extended release 24 hr 25 mg PO Q12H Patient Comments: TAKE ONE TABLET BY MOUTH EVERY DAY FOR BLOOD PRESSURE dapsone 100 mg tablet 100 mg PO QDAY Patient Comments: TAKE ONE TABLET BY MOUTH EVERY DAY prednisone 10 mg tablet 10 mg PO QDAY Patient Comments: TAKE ONE TABLET BY MOUTH EVERY MORNING WITH FOOD loperamide 2 mg capsule 2 mg PO QID Patient Comments: TAKE ONE CAPSULE BY MOUTH FOUR TIMES DAILY FOR DIARRHEA meclizine 12.5 mg tablet 12.5 mg PO TID Patient Comments: TAKE ONE TABLET BY MOUTH THREE TIMES DAILY NEEDED FOR NAUSEA AND VOMITING diclofenac sodium 1 % gel 4 g TOPICAL QID Patient Comments: APPLY FOUR GRAM TRANSDERMALLY FOUR TIMES DAILY ubbzebhfae-lsxanfvbcjsjq-wedx 50-325-40 mg tablet 1 tab PO PRN Patient Comments: TAKE ONE TABLET BY MOUTH EVERY 6 HOURS NEEDED FOR HEADACHE nystatin 100,000 unit/gram Cream 1 applic top BID 30 Days Qty: 30 0RF doxycycline monohydrate 100 mg capsule 100 mg PO BID Qty: 10 0RF dronabinol 2.5 mg capsule 2.5 mg PO QDAY Qty: 30 0RF Rx Instructions: administer before lunch and evening meal/dinner timolol maleate 0.5 % Drops 1 drp OPHTHALMIC (EYE) BID metformin 500 mg Tablet Extended Release 24 Hr 500 mg PO QDAY Referrals: Rajesh Lim MD [Primary Care Provider] - In 1 week Problem List Clinical Impression: Diarrhea, Hypomagnesemia Patient/Caregiver Discharge Instructions Education Materials: Self-Care for Vomiting and Diarrhea, ED Diarrhea, Unknown Cause Additional Instructions: Follow-up with your primary care doctor if there is a worsening of symptoms return to the emergency room for reevaluation. 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 Repeat EKG performed at 2132 shows a ventricular rate of 77 QRS of 100 QTc of 430 which is A-fib. Lab Interpretation Lab(s) interpretation(s): CBC shows a leukocytosis of 14.3 no anemia no thrombocytopenia Coags show PT of 13.6 INR of 1.3 and PTT of 20. CMP shows no significant electrolyte imbalances other than a glucose of 167. Mag of 1.2 T. bili of 1.4 AST of 69 no other transaminitis BNP of 1286 Lipase of 54. Medication Administration(s) Medication Administration History Discontinued Medications Magnesium Sulfate (Magnesium Sulfate Ivpb) 2 gm in 50 mls @ 25 mls/hr IV X1 ONE Stop: 11/27/24 21:01 Last Infusion: 11/27/24 21:36 Dose: Infused Documented By: Admin: 11/27/24 19:23 Dose: 25 mls/hr Documented By: GARCÍA
[2024-11-27 17:06] LABS: Collection Type, Urine Clean Catch
[2024-11-27 17:11] LABS: Bilirubin,Urine Negative (Negative); Blood,Urine Negative (Negative); Clarity,Urine Clear (Clear/Hazy); Color,Urine Yellow (Lt Yel-Yel); Glucose, Urine Negative (Negative); Hyaline Casts,Urine < 1 /hpf (0-1); Ketones,Urine Negative (Negative); Leukocyte Esterase,Urine Positive (Negative); Nitrite,Urine Negative (Negative); PH,Urine 7.0 (5.0-7.0); Protein,Urine Trace (Neg - Trace); RBC,Urine 1 /hpf (0-3); Specific Gravity,Urine 1.019 (1.001-1.035); Squamous Epithelial Cell,Urine < 1 /hpf (0-5); Urobilinogen,Urine Negative mg/dL (0.0-1.0); WBC,Urine 12 /hpf (0-5)
[2024-11-27 17:48] LABS: Culture Indicated,Urine Yes
[2024-11-27 18:03] LABS: Amphetamine/Methamp Scrn,U Negative (Negative); Barbiturate Screen,Urine Negative (Negative); Benzodiazepines Screen,Urine Negative (Negative); Benzoylecgonine Screen, Ur Negative (Negative); Fentanyl Screen,Urine Negative (Negative); Opiate Screen,Urine Negative (Negative); THC Screen,Urine Negative (Negative)
[2024-11-27 18:08] LABS: Basophils # (Auto) 0.1 Thou/mm3 (0.0-0.2); Basophils % (Auto) 1 % (0-2.5); Eosinophils # (Auto) 0.0 Thou/mm3 (0.0-0.5); Eosinophils % (Auto) 0 % (0-10); Hematocrit 37.9 % (36.0-46.0); Hemoglobin 12.0 g/dL (12.0-16.0); Immature Granulocytes Auto 0.05 Thou/mm3 (0.00-0.00); Lymphocytes # (Auto) 4.1 Thou/mm3 (1.0-4.8); Lymphocytes % (Auto) 29 % (10-50); Mean Corpuscular HGB Conc 31.7 g/dl (31.0-37.0); Mean Corpuscular Hemoglobin 32.8 pg (25.0-35.0); Mean Corpuscular Volume 104 fL (80-100); Monocytes # (Auto) 0.8 Thou/mm3 (0.0-0.8); Monocytes % (Auto) 6 % (0-12); Neutrophils # (Auto) 9.2 Thou/mm3 (1.8-7.7); Neutrophils % (Auto) 64 % (37-80); Nucleated Red Blood Cell # 0.83 Thou/mm3 (0.00-0.00); Nucleated Red Blood Cell % 6 /100 WBC (0); Platelet Count 332 Thou/mm3 (140-440); RDW Standard Deviation 76.1 fL (36.4-46.3); Red Blood Count 3.66 Miln/mm3 (4.00-5.20)
[2024-11-27 18:21] LABS: INR 1.3 (0.9-1.3); Partial Thromboplastin Time 20.0 Seconds (22.0-36.0); Prothrombin Time 13.6 Seconds (9.0-12.2)
[2024-11-27 18:24] LABS: Alanine Aminotransferase 44 U/L (10-49); Albumin, Serum 3.9 gm/dL (3.4-4.8); Albumin/Globulin Ratio 1.9 (1.2-2.2); Alkaline Phosphatase 108 U/L (46-116); Anion Gap 15 (7-16); Aspartate Amino Transferase 69 U/L (0-34); BUN/Creatinine Ratio 13 Ratio (12-20); Bilirubin,Total 1.4 mg/dL (0.3-1.2); Blood Urea Nitrogen 13 mg/dL (9-23); Calcium 10.7 mg/dL (8.3-10.6); Calcium (Corrected) 10.8 mg/dL (8.5-10.1); Carbon Dioxide 22.2 mMol/L (20.0-31.0); Chloride 103 mMol/L (98-107); Creatinine (Component) 1.0 mg/dL (0.6-1.3); Estimated Creatinine Clearance 45.4 mL/min (>60); Globulin 2.1 gm/dL (2.3-3.5); Glucose 167 mg/dL (74-106); Lipase 54 U/L (12-53); Magnesium 1.2 mg/dL (1.6-2.6); Osmolality,Calculated 283 (275-295); Potassium 3.7 mMol/L (3.4-5.1); Sodium 140 mMol/L (136-145); Total Protein 6.0 gm/dL (5.7-8.2); eGFR 56 See Note
[2024-11-27 18:29] VITALS: BP 114/65; PULSE 61; RESP 14; TEMP 36.3; O2SAT 95
[2024-11-27 18:47] LABS: B-Type Natriuretic Peptide 1286 pg/mL (0-100)
[2024-11-27] MEDS: Magnesium Sulfate 2 GM Ivpb 2 GM/50 ML BAG IV (19:23)
--- NOTE | 2024-11-27 21:26 | EKG_ITS ---
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1940 Requested By: Frantz Ventura Order Number: [id number] Reading MD: Frantz Ventura Measurements Intervals [place] Rate: 56 P: [place]: QRS: -19 QRSD: 67 T: -18 QT: 391 QTc: 379 Interpretive Statements ATRIAL FIBRILLATION WITH SLOW VENTRICULAR RESPONSE LOW QRS VOLTAGE IN PRECORDIAL LEADS [QRS DEFLECTION < 1.0 mV IN CHEST LEADS] ANTEROSEPTAL MYOCARDIAL INFARCTION , OF INDETERMINATE AGE [40+ ms Q WAVE IN V1-V4] Compared to ECG 11/15/2024 11:57:48 T-wave abnormality no longer present Possible ischemia no longer present Myocardial infarct finding still present /store/S0/[id number]/[id number].pdf
[2024-11-27 21:57] VITALS: BP 106/56; PULSE 57; RESP 17; O2SAT 96
[2024-11-27 23:31] LABS: Path Review Blood Smear Sent to Pathologist
[2024-11-27 23:35] LABS: White Blood Count 13.5 Thou/mm3 (3.6-11.0)
== END 2024-11-27 22:00 | disposition home or self-care (01) ==
PROVIDERS: Registered Nurse General Practice; Emergency Provider Family Medicine; PCP Family Medicine
DX: E83.42 Hypomagnesemia (principal); R19.7 Diarrhea, unspecified; R00.1 Bradycardia, unspecified; I48.91 Unspecified atrial fibrillation; I10 Essential (primary) hypertension; E78.00 Pure hypercholesterolemia, unspecified
CPT/HCPCS: 51701; 36415; 80053; 80307; 81001; 83690; 83735; 83880; 85025; 85610; 85730; 87086; 93005; 96365; 96366; 99284; J3475

== ENCOUNTER 2024-12-03 00:47 | Emergency (ER) | payer MEDICARE, BC, SELFPAY ==
[2024-12-03 00:53] VITALS: BP 102/63; PULSE 103; RESP 19; TEMP 36.7; O2SAT 92
[2024-12-03 00:54] VITALS: BMI 27.2
[2024-12-03 01:00] VITALS: PULSE 93; RESP 20; O2SAT 96; BMI 27.2
--- NOTE | 2024-12-03 01:08 | PD.EDFALL ---
ED Fall Injury RME/HPI General Chief Complaint: Fall Stated Complaint: FALL Time Seen by Provider: 12/03/24 01:09 Arrival date/time: 12/03/24 00:47 RME / HPI RME / HPI Narrative: Dr. Claros?s Main ED Evaluation: 84yo female SABINO from home presents to the ED for a fall. Patient fell out of bed when she was rolling over and hit her head on the dresser. No LOC. Patient is not on any blood thinners. She denies any chest pain, abdominal pain, neck pain, extremity pain, or any other associated symptoms. Related Data Home Medications ?Medication ?Instructions ?Recorded ?Confirmed benazepril 5 mg tablet 5 mg PO QDAY 04/21/18 11/14/24 levothyroxine 100 mcg tablet 100 mcg PO DAILY 04/21/18 11/14/24 lovastatin 40 mg tablet 40 mg PO DAILY 04/21/18 11/14/24 metformin 500 mg tablet,extended 500 mg PO QDAY 02/10/22 11/14/24 release 24 hr timolol maleate 0.5 % eye drops 1 drp ophthalmic (eye) BID 02/10/22 11/14/24 qbacucwryb-sybmgocskqllh-lhumauce 1 tab PO PRN 11/14/24 11/14/24 50 mg-325 mg-40 mg tablet dapsone 100 mg tablet 100 mg PO QDAY 11/14/24 11/14/24 diclofenac sodium 1 % topical gel 4 g topical QID 11/14/24 11/14/24 loperamide 2 mg capsule 2 mg PO QID 11/14/24 11/14/24 meclizine 12.5 mg tablet 12.5 mg PO TID 11/14/24 11/14/24 metoprolol succinate 25 mg 25 mg PO Q12H 11/14/24 11/14/24 tablet,extended release 24 hr prednisone 10 mg tablet 10 mg PO QDAY 11/14/24 11/14/24 Previous Rx's ?Medication ?Instructions ?Recorded doxycycline monohydrate 100 mg 100 mg PO BID #10 caps 11/16/24 capsule dronabinol 2.5 mg capsule 2.5 mg PO QDAY #30 caps 11/16/24 nystatin 100,000 unit/gram topical 1 applic top BID 30 days #30 grams 11/16/24 cream Allergies Allergy/AdvReac Type Severity Reaction Status Date / Time adhesive tape Allergy Mild Redness of Unverified 11/27/24 16:19 Skin ceftriaxone Allergy Mild rash Verified 11/27/24 16:19 nitrofurantoin Allergy Mild Itching Verified 11/27/24 16:19 sulfamethoxazole Allergy Mild Itching Verified 11/27/24 16:19 trimethoprim Allergy Mild Itching Verified 11/27/24 16:19 Penicillins Allergy Unknown Itching Verified 11/27/24 16:19 Review of Systems Review of Systems Systems Reviewed: All systems reviewed, normal except as documented Past Medical History Past Medical History NEUROLOGIC: Positive Migraine CARDIAC: Positive Cardiac Disorders, Atrial Fibrillation, Atherosclerotic Heart Disease, Hypercholesterolemia and Hypertension; Negative Congestive Heart Failure RESPIRATORY: Negative Chronic Obstructive Pulmonary Disease (COPD) GASTROINTESTINAL: Positive Diverticulitis GENITOURINARY: Positive Renal Disease MUSCULOSKELETAL: Positive Arthritis ENT: Positive Cataracts ENDOCRINE: Positive Diabetes Mellitus Type 2 and Hypothyroidism; Negative Diabetes Mellitus Type 1 HEMATOLOGIC: Negative Blood Disorders OTHER HISTORY: Positive Hospitalization, Shingles, Falls, Radiation Therapy, Chicken Pox, Measles, Cancer and Lung Cancer; Negative Autoimmune Disease, Down Syndrome, Developmental Delay, Blood Transfusions or Anesthesia Reactions Family History FAMILY HISTORY: Positive Family Cardiac Disorders Surgical History SURGICAL: Positive Nephrectomy, Neurologic Surgery and Hysterectomy Social History SMOKING STATUS: Never smoker ED Exam Narrative Physical exam: Generally patient is alert elderly appearing female resting comfortably and in no obvious distress, head shows a 5 mm wound just lateral to the right orbital rim without step-off or deformity. This is a 5 mm laceration. No active bleeding., Neck shows no obvious midline tenderness and none tender to head compression, heart regular rate and rhythm, lungs clear to auscultation equal bilaterally, extremities show slight skin tear just proximal to the right elbow with full range of motion of the right elbow without difficulty. No other wounds or deformities to the extremities noted, neurologic exam [place] Coma Scale of 15 without focal motor deficit Course Quality Measures none Orders Category Date Time Status CT cervical spine wo con Stat Exams 12/03/24 01:[address] head/brain wo con Stat Exams 12/03/24 01:20 Taken Vital Signs Vital signs: Vital Signs Temperature 98.0 F 12/03/24 00:53 Pulse Rate 103 H 12/03/24 00:53 Respiratory Rate 19 12/03/24 00:53 Blood Pressure 102/63 12/03/24 00:53 Pulse Oximetry (%) 92 L 12/03/24 00:53 Oxygen Delivery Method Room Air 12/03/24 00:53 Fall MDM Narrative MDM Narrative:: Scribe Attestation: 12/03/24 Nomra Beltrán am scribing for and in the presence of Dr. Claros. Patient's wound was cleansed with normal saline here in the emergency room and closed using skin adhesive. This was the 5 mm facial wound. CAT scan of the brain negative. CAT scan of the cervical spine showed no fracture no dislocation. Patient is stable for discharge. Differential diagnosis: Laceration, musculoskeletal pain, fracture, dislocation, intracerebral bleed Patient data External records reviewed:: [facility] previous records (Per chart review, patient was seen here on 11/27/24 for diarrhea.) and EMS form Clinical information provided by:: patient Social determinants that could affect healthcare access:: none Patient has the following chronic illnesses:: AHD, HTN, HLD, DM, hypothyroidism How is presenting disease/condition affected by chronic disease/condition?: uneffected by Evaluation data The following diagnostics were reviewed and interpreted by me:: radiology exam(s) Lab and/or radiology exams considered but not ordered:: none Interpretation Summary: [facility] Preliminary Report Draft Patient: ISMAEL DEWITT [facility]. Record#: [id number] Birthdate: 1940 Age/Sex: 84 / F Location: [facility] Attending Dr: Ordering Physician: Date of Service: Procedure(s): Accession Number(s): cc: ~ CT scan of the head without intravenous contrast (axial sections with sagittal and coronal reformats) December 03, 2024 0139 hours Clinical history: Altered mental status. Reference is made to the prior report dated November 14, 2024. Findings: Again seen is right temporal craniotomy with underlying encephalomalacia/gliosis in the right temporoparietal lobe. There is no evidence of intracranial hemorrhage, mass effect or midline shift. There are periventricular white matter hypodensities, compatible with chronic small vessel ischemia. No definitive wedge shaped acute infarcts are detected. Please note that subtle early infarcts are better assessed using diffusion weighted MR imaging if clinically indicated. There is mild volume loss. The calvarium is otherwise unremarkable. The mastoid air cells and the visualized paranasal sinuses are clear. Impression: No evidence of intracranial hemorrhage, mass effect or midline shift. If there are persistent clinical symptoms or additional clinical concerns consider an MRI. Other findings as described above. Report Electronically Signed By: Van Colbert 12/03/2024 2:20:43 AM [EST] CT scan of the cervical spine without intravenous contrast (axial sections with sagittal and coronal reformats). December 03, 2024 0141 hours Clinical history: Blunt head trauma Compared with the prior study dated November 14, 2024. Findings: There is no evidence of acute fracture or traumatic subluxation. The bones are osteopenic. There is multilevel degenerative disc, uncovertebral and facet joint disease, predominantly at the C5-C6 level causing spinal canal and neural foraminal narrowing. The prevertebral soft tissues are unremarkable. There is wall thickening of the proximal thoracic esophagus, which may be due to reflux esophagitis or due to other inflammatory pathology. Impression: 1. No evidence of acute fracture or traumatic subluxation. 2. Degenerative changes as described. 3. Other findings as described above. Suggest clinical correlation and follow up accordingly. This report has been electronically signed by: Van Colbert MD. Medications / Prescriptions Medications or Prescriptions considered but not ordered:: none Medication administrations:: none Consultations Consultation(s) initiated? (list below): No Diagnosis Fall Differential Diagnosis: other (See MDM.) Most likely diagnosis given after review of the tests above:: see clinical impression below Admission Indicated Admission indicated?: not indicated Admission Request Was there a request for admission?: No Disposition Plan Disposition Plan: Discharge Discharge Attestation Discharge Attestation: The patient and all family members were given an opportunity to ask questions and understood the discharge instructions. Discharge instructions specifically effects, indications for sooner follow up or return to the emergency department, and the expected course of current diagnosis. Patient condition: Stable Discharge Plan Plan Patient Disposition: HOME (Self Care) Prescriptions/Referrals Prescriptions/Med Rec: No Action benazepril 5 mg Tablet 5 mg PO QDAY lovastatin 40 mg Tablet 40 mg PO DAILY levothyroxine 100 mcg Tablet 100 mcg PO DAILY metoprolol succinate 25 mg tablet extended release 24 hr 25 mg PO Q12H Patient Comments: TAKE ONE TABLET BY MOUTH EVERY DAY FOR BLOOD PRESSURE dapsone 100 mg tablet 100 mg PO QDAY Patient Comments: TAKE ONE TABLET BY MOUTH EVERY DAY prednisone 10 mg tablet 10 mg PO QDAY Patient Comments: TAKE ONE TABLET BY MOUTH EVERY MORNING WITH FOOD loperamide 2 mg capsule 2 mg PO QID Patient Comments: TAKE ONE CAPSULE BY MOUTH FOUR TIMES DAILY FOR DIARRHEA meclizine 12.5 mg tablet 12.5 mg PO TID Patient Comments: TAKE ONE TABLET BY MOUTH THREE TIMES DAILY NEEDED FOR NAUSEA AND VOMITING diclofenac sodium 1 % gel 4 g TOPICAL QID Patient Comments: APPLY FOUR GRAM TRANSDERMALLY FOUR TIMES DAILY fdxqmdthod-niugktoyuiwzf-mwre 50-325-40 mg tablet 1 tab PO PRN Patient Comments: TAKE ONE TABLET BY MOUTH EVERY 6 HOURS NEEDED FOR HEADACHE nystatin 100,000 unit/gram Cream 1 applic top BID 30 Days Qty: 30 0RF doxycycline monohydrate 100 mg capsule 100 mg PO BID Qty: 10 0RF dronabinol 2.5 mg capsule 2.5 mg PO QDAY Qty: 30 0RF Rx Instructions: administer before lunch and evening meal/dinner timolol maleate 0.5 % Drops 1 drp OPHTHALMIC (EYE) BID metformin 500 mg Tablet Extended Release 24 Hr 500 mg PO QDAY Problem List Clinical Impression: Blunt head trauma, Facial laceration Patient/Caregiver Discharge Instructions Education Materials: ED Laceration, Face: Skin Glue Additional Instructions: CAT scan of the brain and neck showed no injury. Keep the wound dry for the next 5 days. You may use Tylenol for pain. Print Language: Faroese Stand Alone Forms: [employer] Award Info., Patient Portal Info Letter
[2024-12-03 01:12] VITALS: BP 102/71; PULSE 83; RESP 13; O2SAT 95
--- NOTE | 2024-12-03 01:20 | XR_ITS ---
Examination: CT cervical spine without contrast 2-D sagittal reconstructions 2-D coronal reconstructions 3-D reconstructions. Exam date and time:December 13, 2024, 0141 hrs., Comparison November 14, 2024 Indications: Patient fell out of bed this morning with injury to the neck, neck pain CTDI:vol (mGy) 14.1 DLP: (mGycm) 353 Technique: Multiple 2 mm axial sections of the cervical spine have been obtained. The coronal and sagittal reconstructions have been obtained. 3-D reconstructions have been obtained. Low dose protocols were performed. One or more of the following dose reduction techniques were used; automated exposure control, adjustment of the mA and/or KV according to patient size, use of iterative reconstruction technique. Findings: Axial sections demonstrate intact base of the skull. C1 exhibit satisfactory relationship to the odontoid. No acute cervical vertebral body fracture seen. Alignment posterior spinous processes satisfactory. Mild thickening the visualized esophagus Impression: No acute cervical fracture.
--- NOTE | 2024-12-03 01:20 | XR_ITS ---
Examination: CT brain head without contrast. 2-D sagittal coronal reconstructions Date and time of exam:December 03 thousand 25, 0139 hrs. Indications: Patient fell out of bed this evening with injury to the head followed by head pain, altered mental status CTDI: vol (mGy):45.4 DLP: (mGycm):823 Technique: Multiple CT axial sections of the brain have been obtained, 5 mm slice thickness. Contrast has not been administered. 2-D sagittal, coronal reconstructions have been obtained Low dose protocols were performed. One or more of the following dose reduction techniques were used; automated exposure control, adjustment of the mA and/or KV according to patient size, use of iterative reconstruction technique. Findings: Right craniotomy defect and encephalomalacia in the right temporal lobe unchanged compared with November 14, 2024. No interval hemorrhage mass effect or midline shift. Ventricles do not show significant enlargement Fourth ventricle is midline No cranial vault fracture Impression: No interval hemorrhage mass effect or midline shift
--- NOTE | 2024-12-03 02:21 | PRELIM_ITS ---
CT scan of the head without intravenous contrast (axial sections with sagittal and coronal reformats) December 03, 2024 0139 hours Clinical history: Altered mental status. Reference is made to the prior report dated November 14, 2024. Findings: Again seen is right temporal craniotomy with underlying encephalomalacia/gliosis in the right temporoparietal lobe. There is no evidence of intracranial hemorrhage, mass effect or midline shift. There are periventricular white matter hypodensities, compatible with chronic small vessel ischemia. No definitive wedge shaped acute infarcts are detected. Please note that subtle early infarcts are better assessed using diffusion weighted MR imaging if clinically indicated. There is mild volume loss. The calvarium is otherwise unremarkable. The mastoid air cells and the visualized paranasal sinuses are clear. Impression: No evidence of intracranial hemorrhage, mass effect or midline shift. If there are persistent clinical symptoms or additional clinical concerns consider an MRI. Other findings as described above. Report Electronically Signed By: Van Colbert 12/03/2024 2:20:43 AM [EST]
--- NOTE | 2024-12-03 02:29 | PRELIM_ITS ---
CT scan of the cervical spine without intravenous contrast (axial sections with sagittal and coronal reformats). December 03, 2024 0141 hours Clinical history: Blunt head trauma Compared with the prior study dated November 14, 2024. Findings: There is no evidence of acute fracture or traumatic subluxation. The bones are osteopenic. There is multilevel degenerative disc, uncovertebral and facet joint disease, predominantly at the C5-C6 level causing spinal canal and neural foraminal narrowing. The prevertebral soft tissues are unremarkable. There is wall thickening of the proximal thoracic esophagus, which may be due to reflux esophagitis or due to other inflammatory pathology. Impression: 1. No evidence of acute fracture or traumatic subluxation. 2. Degenerative changes as described. 3. Other findings as described above. Suggest clinical correlation and follow up accordingly. Report Electronically Signed By: Van Colbert 12/03/2024 2:28:47 AM [EST]
[2024-12-03 02:49] VITALS: BP 97/67; PULSE 90; RESP 14; O2SAT 97
== END 2024-12-03 02:49 | disposition home or self-care (01) ==
LOC: SERX 02:40
PROVIDERS: Emergency Provider Emergency Medicine; PCP Family Medicine
DX: S01.81XA Laceration without foreign body of other part of head, initial encounter (principal); S19.9XXA Unspecified injury of neck, initial encounter; W06.XXXA Fall from bed, initial encounter; I10 Essential (primary) hypertension; E78.5 Hyperlipidemia, unspecified; E11.9 Type 2 diabetes mellitus without complications; E03.9 Hypothyroidism, unspecified
CPT/HCPCS: 70450; 72125; 99283

== ENCOUNTER 2024-12-16 01:30 | Emergency (ER) | payer MEDICARE, BC, SELFPAY ==
[2024-12-16 01:33] VITALS: PULSE 78; RESP 97; BMI 24.0
--- NOTE | 2024-12-16 01:34 | PD.EDSYNC ---
ED Syncope RME/HPI General Chief Complaint: Syncope / Near Syncope Stated Complaint: NEAR SYNCOPE Time Seen by Provider: 12/16/24 01:34 Arrival date/time: 12/16/24 01:30 RME / HPI RME / HPI narrative: Dr. Claros?s Main ED Evaluation: 84yo female with a history of brain CA s/p resection (2021), lung CA, AHD, HTN, HLD, DM, hypothyroidism BIBA from home presents to the ED for a chief complaint of generalized weakness. Patient was using the commode when she suddenly felt generally weak and lethargic. Patient reports being diaphoretic earlier tonight. No fall or injuries. Patient denies any fever, chills, headache, chest pain, shortness of breath, or any other associated symptoms. Blood sugar en route with EMS was 152. Related Data Home Medications ?Medication ?Instructions ?Recorded ?Confirmed benazepril 5 mg tablet 5 mg PO QDAY 04/21/18 11/14/24 levothyroxine 100 mcg tablet 100 mcg PO DAILY 04/21/18 11/14/24 lovastatin 40 mg tablet 40 mg PO DAILY 04/21/18 11/14/24 metformin 500 mg tablet,extended 500 mg PO QDAY 02/10/22 11/14/24 release 24 hr timolol maleate 0.5 % eye drops 1 drp ophthalmic (eye) BID 02/10/22 11/14/24 lblbxjyzxl-tyhgtbboehhrk-[id number] 1 tab PO PRN 11/14/24 11/14/24 50 mg-325 mg-40 mg tablet dapsone 100 mg tablet 100 mg PO QDAY 11/14/24 11/14/24 diclofenac sodium 1 % topical gel 4 g topical QID 11/14/24 11/14/24 loperamide 2 mg capsule 2 mg PO QID 11/14/24 11/14/24 meclizine 12.5 mg tablet 12.5 mg PO TID 11/14/24 11/14/24 metoprolol succinate 25 mg 25 mg PO Q12H 11/14/24 11/14/24 tablet,extended release 24 hr prednisone 10 mg tablet 10 mg PO QDAY 11/14/24 11/14/24 Previous Rx's ?Medication ?Instructions ?Recorded doxycycline monohydrate 100 mg 100 mg PO BID #10 caps 11/16/24 capsule dronabinol 2.5 mg capsule 2.5 mg PO QDAY #30 caps 11/16/24 Allergies Allergy/AdvReac Type Severity Reaction Status Date / Time adhesive tape Allergy Mild Redness of Verified 12/16/24 01:41 Skin ceftriaxone Allergy Mild rash Verified 12/16/24 01:41 nitrofurantoin Allergy Mild Itching Verified 12/16/24 01:41 sulfamethoxazole Allergy Mild Itching Verified 12/16/24 01:41 trimethoprim Allergy Mild Itching Verified 12/16/24 01:41 Penicillins Allergy Unknown Itching Verified 12/16/24 01:41 Review of Systems Review of Systems Systems Reviewed: All systems reviewed, normal except as documented Past Medical History Past Medical History NEUROLOGIC: Positive Migraine CARDIAC: Positive Cardiac Disorders, Atrial Fibrillation, Atherosclerotic Heart Disease, Hypercholesterolemia and Hypertension; Negative Congestive Heart Failure RESPIRATORY: Negative Chronic Obstructive Pulmonary Disease (COPD) GASTROINTESTINAL: Positive Diverticulitis GENITOURINARY: Positive Renal Disease MUSCULOSKELETAL: Positive Arthritis ENT: Positive Cataracts ENDOCRINE: Positive Diabetes Mellitus Type 2 and Hypothyroidism; Negative Diabetes Mellitus Type 1 HEMATOLOGIC: Negative Blood Disorders OTHER HISTORY: Positive Hospitalization, Shingles, Falls, Radiation Therapy, Chicken Pox, Measles, Cancer and Lung Cancer; Negative Autoimmune Disease, Down Syndrome, Developmental Delay, Blood Transfusions or Anesthesia Reactions Family History FAMILY HISTORY: Positive Family Cardiac Disorders Surgical History SURGICAL: Positive Nephrectomy, Neurologic Surgery and Hysterectomy Social History SMOKING STATUS: Never smoker ED Exam Narrative Physical exam: Generally the patient is alert however somnolent and chronically ill-appearing, chest shows right upper chest Port-A-Cath to be in place heart regular rate and rhythm, lungs clear to auscultation equal laterally, abdomen soft obese nondistended mild diffuse tenderness without rebound neurologic exam shows Titi Coma Scale of 15 without focal motor deficits skin is cool pale and dry Course Course Course Narrative: CXR is ordered for determining the etiology of weakness. Quality Measures none Orders Category Date Time Status EKG (ED ONLY) *Do not use* NOW Care 12/16/24 01:35 Completed EKG (ED Only) Stat Exams 12/16/24 01:35 Draft XR chest 1V portable Stat Exams 12/16/24 01:35 Taken CBC Stat Lab 12/16/24 02:00 Completed CMP [Comprehensive Metabolic Panel] Stat Lab 12/16/24 02:00 Completed Troponin I Stat Lab 12/16/24 02:00 Completed UA [Urinalysis] Stat Lab 12/16/24 01:49 Completed Ondansetron Inj [Zofran Inj] Med 12/16/24 02:41 Once 4 mg IVP X1 ONE Sodium Chloride 0.9% 1000 ml [Ns] 1,000 ml Med 12/16/24 01:35 Discontinued IV 999 mls/hr Vital Signs Vital signs: Vital Signs Temperature 99 F 12/16/24 01:37 Pulse Rate 96 12/16/24 01:37 Respiratory Rate 18 12/16/24 01:37 Blood Pressure 119/90 H 12/16/24 01:37 Pulse Oximetry (%) 99 12/16/24 01:37 Oxygen Delivery Method Room Air 12/16/24 01:37 Syncope MDM Narrative [facility] Narrative:: Scribe Attestation: 12/16/24 - Norma Chu am scribing for and in the presence of Dr. Claros. I interpreted all labs. There is no anemia. There is a mild metabolic acidosis. Patient was hydrated with a liter of normal saline. She is currently battling a urinary tract infection. She is already on antibiotics. It sounds as if the patient had a near syncopal episode tonight while using the commode. She is back to baseline status according to the patient's family member at scene. EKG done at 1:51 AM shows normal sinus rhythm at a rate of 93 with occasional supraventricular premature complexes. No ST segment changes. I do long discussion with the patient and her family member at bedside and they feel comfortable taking the patient home. They were encouraged to increase hydration. Continue the antibiotic for the urinary tract infection. Return to ER as needed or if condition worsens. Patient data External records reviewed:: [facility] previous records (Per chart review, patient was seen here on 12/03/24 for blunt head trauma.) and EMS form Clinical information provided by:: patient and EMS Social determinants that could affect healthcare access:: none Patient has the following chronic illnesses:: brain CA s/p resection (2021), lung CA, AHD, HTN, HLD, DM, hypothyroidism How is presenting disease/condition affected by chronic disease/condition?: exacerbated by Evaluation data The following diagnostics were reviewed and interpreted by me:: lab results, radiology exam(s) and EKG tracing(s) Lab and/or radiology exams considered but not ordered:: none Interpretation Summary: See MDM Medications / Prescriptions Medications or Prescriptions considered but not ordered:: none Medication administrations:: Medication Administration History Ondansetron HCl (Ondansetron Inj 2 Mg/Ml Inj 2 Ml) 4 mg IVP X1 ONE; Protocol Stop: 12/16/24 02:42 Discontinued Medications Sodium Chloride (Ns) 1,000 mls @ 999 mls/hr IV .Q1H1M ONE Stop: 12/16/24 02:35 Last Admin: 12/16/24 01:40 Dose: 999 mls/hr Documented By: HUBER see above Consultations Consultation(s) initiated? (list below): No Diagnosis Syncope Differential Diagnosis: other (see MDM) Most likely diagnosis given after review of the tests above:: see clinical impression below Admission Indicated Admission indicated?: not indicated Admission Request Was there a request for admission?: No Disposition Plan Disposition Plan: Discharge Discharge Attestation Discharge Attestation: The patient and all family members were given an opportunity to ask questions and understood the discharge instructions. Discharge instructions specifically effects, indications for sooner follow up or return to the emergency department, and the expected course of current diagnosis. Patient condition: Stable Discharge Plan Plan Patient Disposition: HOME (Self Care) Prescriptions/Referrals Prescriptions/Med Rec: No Action benazepril 5 mg Tablet 5 mg PO QDAY lovastatin 40 mg Tablet 40 mg PO DAILY levothyroxine 100 mcg Tablet 100 mcg PO DAILY metoprolol succinate 25 mg tablet extended release 24 hr 25 mg PO Q12H Patient Comments: TAKE ONE TABLET BY MOUTH EVERY DAY FOR BLOOD PRESSURE dapsone 100 mg tablet 100 mg PO QDAY Patient Comments: TAKE ONE TABLET BY MOUTH EVERY DAY prednisone 10 mg tablet 10 mg PO QDAY Patient Comments: TAKE ONE TABLET BY MOUTH EVERY MORNING WITH FOOD loperamide 2 mg capsule 2 mg PO QID Patient Comments: TAKE ONE CAPSULE BY MOUTH FOUR TIMES DAILY FOR DIARRHEA meclizine 12.5 mg tablet 12.5 mg PO TID Patient Comments: TAKE ONE TABLET BY MOUTH THREE TIMES DAILY NEEDED FOR NAUSEA AND VOMITING diclofenac sodium 1 % gel 4 g TOPICAL QID Patient Comments: APPLY FOUR GRAM TRANSDERMALLY FOUR TIMES DAILY eoxdddjwez-dxcibafhsndrw-gxjl 50-325-40 mg tablet 1 tab PO PRN Patient Comments: TAKE ONE TABLET BY MOUTH EVERY 6 HOURS NEEDED FOR HEADACHE doxycycline monohydrate 100 mg capsule 100 mg PO BID Qty: 10 0RF dronabinol 2.5 mg capsule 2.5 mg PO QDAY Qty: 30 0RF Rx Instructions: administer before lunch and evening meal/dinner timolol maleate 0.5 % Drops 1 drp OPHTHALMIC (EYE) BID metformin 500 mg Tablet Extended Release 24 Hr 500 mg PO QDAY Referrals: Rajesh Lim MD [Primary Care Provider, Family Practice] - In 1 week Problem List Clinical Impression: Near syncope, Dehydration, UTI (urinary tract infection) Patient/Caregiver Discharge Instructions Education Materials: ED Near-Fainting, Uncertain Cause Additional Instructions: Continue the antibiotic. Keep well-hydrated. Follow-up with your doctor. Return to ER as needed or if condition worsens. Print Language: Croatian Stand Alone Forms: [employer] Award Info., Patient Portal Info Letter
--- NOTE | 2024-12-16 01:35 | XR_ITS ---
Examination: AP chest single view Technique: AP portable semiupright chest single view Date and time: December 16, 2024 0147 hrs., Comparison November 14, 2024 Indications: Chest pain today Findings: Mild opacity left base Normal heart size Ectatic enlarged and calcified thoracic aorta Right Port-A-Cath line SVC No pulmonary edema Moderate osteopenia with old fracture right fifth rib posteriorly 12 mm pulmonary nodule right midlung 6 mm pulmonary nodule left midlung Please see the CT chest report November 14, 2024 Impression: Opacity left base consistent with pneumonia Bilateral pulmonary nodules, please see the CT chest report November 14, 2024
--- NOTE | 2024-12-16 01:35 | EKG_ITS ---
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: : 1940 Requested By: Casey Rosales Order Number: [id number] Reading MD: Casey Rosales Measurements Intervals [place] Rate: 93 P: 24 GA: 84 QRS: 1 QRSD: 86 T: 9 QT: 393 QTc: 489 Interpretive Statements SINUS RHYTHM WITH SHORT GA INTERVAL WITH OCCASIONAL SUPRAVENTRICULAR PREMATURE COMPLEXES LOW QRS VOLTAGE IN PRECORDIAL LEADS [QRS DEFLECTION < 1.0 mV IN CHEST LEADS] MODERATE ST DEPRESSION [0.05+ mV ST DEPRESSION] Compared to ECG 11/27/2024 16:31:46 Short GA interval now present ST (T wave) deviation now present Myocardial infarct finding no longer present /store/S0/[id number]/[id number].pdf
[2024-12-16 01:37] VITALS: BP 119/90; PULSE 96; RESP 18; TEMP 37.2; O2SAT 99
[2024-12-16] MEDS: SODIUM CHLORIDE 0.9% 1000 ML 1,000 ML 999 ML IV (01:40)
[2024-12-16 01:56] LABS: Collection Type, Urine Voided; Squamous Epithelial Cell,Urine 0 /hpf (0-5)
[2024-12-16 01:59] LABS: Bilirubin,Urine 1+ (Negative); Blood,Urine Negative (Negative); Clarity,Urine Clear (Clear/Hazy); Color,Urine Yellow (Lt Yel-Yel); Glucose, Urine Negative (Negative); Ketones,Urine 1+ (Negative); Leukocyte Esterase,Urine Positive (Negative); Nitrite,Urine Negative (Negative); PH,Urine 6.5 (5.0-7.0); Protein,Urine 1+ (Neg - Trace); RBC,Urine 3 /hpf (0-3); Specific Gravity,Urine 1.031 (1.001-1.035); Urobilinogen,Urine Negative mg/dL (0.0-1.0); WBC,Urine 26 /hpf (0-5)
[2024-12-16 02:13] LABS: Basophils # (Auto) 0.1 Thou/mm3 (0.0-0.2); Basophils % (Auto) 1 % (0-2.5); Eosinophils # (Auto) 0.1 Thou/mm3 (0.0-0.5); Eosinophils % (Auto) 1 % (0-10); Hematocrit 38.3 % (36.0-46.0); Hemoglobin 12.7 g/dL (12.0-16.0); Immature Granulocytes Auto 0.08 Thou/mm3 (0.00-0.00); Lymphocytes # (Auto) 3.4 Thou/mm3 (1.0-4.8); Lymphocytes % (Auto) 34 % (10-50); Mean Corpuscular HGB Conc 33.2 g/dl (31.0-37.0); Mean Corpuscular Hemoglobin 32.1 pg (25.0-35.0); Mean Corpuscular Volume 97 fL (80-100); Monocytes # (Auto) 0.6 Thou/mm3 (0.0-0.8); Monocytes % (Auto) 6 % (0-12); Neutrophils # (Auto) 6.0 Thou/mm3 (1.8-7.7); Neutrophils % (Auto) 59 % (37-80); Nucleated Red Blood Cell # 0.08 Thou/mm3 (0.00-0.00); Nucleated Red Blood Cell % 1 /100 WBC (0); Platelet Count 250 Thou/mm3 (140-440); RDW Standard Deviation 70.5 fL (36.4-46.3); Red Blood Count 3.96 Miln/mm3 (4.00-5.20); White Blood Count 10.2 Thou/mm3 (3.6-11.0)
[2024-12-16 02:31] LABS: Alanine Aminotransferase 38 U/L (10-49); Albumin, Serum 4.1 gm/dL (3.4-4.8); Albumin/Globulin Ratio 1.7 (1.2-2.2); Alkaline Phosphatase 130 U/L (46-116); Anion Gap 17 (7-16); Aspartate Amino Transferase 70 U/L (0-34); BUN/Creatinine Ratio 15 Ratio (12-20); Bilirubin,Total 0.9 mg/dL (0.3-1.2); Blood Urea Nitrogen 18 mg/dL (9-23); Calcium 8.9 mg/dL (8.3-10.6); Calcium (Corrected) 8.9 mg/dL (8.5-10.1); Carbon Dioxide 18.8 mMol/L (20.0-31.0); Chloride 97 mMol/L (98-107); Creatinine (Component) 1.2 mg/dL (0.6-1.3); Estimated Creatinine Clearance 33.8 mL/min (>60); Globulin 2.4 gm/dL (2.3-3.5); Glucose 131 mg/dL (74-106); Osmolality,Calculated 270 (275-295); Potassium 3.5 mMol/L (3.4-5.1); Sodium 133 mMol/L (136-145); Total Protein 6.5 gm/dL (5.7-8.2); Troponin I 0.021 ng/mL (0.0-0.045); eGFR 45 See Note
[2024-12-16] MEDS: ONDANSETRON INJ 2 MG/ML INJ 2 ML 4 MG IVP (02:53)
[2024-12-16 03:58] VITALS: BP 145/87; PULSE 99; RESP 18; TEMP 37.2; O2SAT 99
== END 2024-12-16 04:00 | disposition home or self-care (01) ==
PROVIDERS: Emergency Provider Emergency Medicine; PCP Family Medicine
DX: E86.0 Dehydration (principal); N39.0 Urinary tract infection, site not specified; R55 Syncope and collapse; R07.9 Chest pain, unspecified; I49.1 Atrial premature depolarization; I10 Essential (primary) hypertension; E78.00 Pure hypercholesterolemia, unspecified; I48.91 Unspecified atrial fibrillation; I25.10 Atherosclerotic heart disease of native coronary artery without angina pectoris; Z95.828 Presence of other vascular implants and grafts
CPT/HCPCS: 36415; 71045; 80053; 81001; 84484; 85025; 93005; 96361; 96374; 99283; J2405; J7030